=== PATIENT | female | born 1985 | race Caucasian/White ===

== ENCOUNTER 2016-09-23 22:27 | Emergency (ER) | payer OTHER ==
[2016-09-23 22:39] VITALS: BP 138/79; PULSE 91; RESP 20; TEMP 97.3
--- NOTE | 2016-09-23 23:12 | ED ---
General Adult HPI - General Chief complaint: Urogenital Stated complaint: Painful Urinating Time Seen by Provider: 09/23/16 22:47 Source: patient, family, RN notes reviewed Mode of arrival: ambulatory Limitations: no limitations - History of Present Illness Initial comments: 31-year-old female presents emergency Department with chief complaint of dysuria. She states his been off for last 2 days. Patient is concerned she may have UTI as she recently found out she is . Patient denies any vaginal bleeding or vaginal discharge. Denies any abdominal pain denies nausea , vomiting, diarrhea constipation. She states when she does increase her fluids she does feel better. Patient denies any other complaints at this time. - Related Data Previous Rx's Medication Instructions Recorded Nitrofurantoin Monohyd/M-Cryst 100 mg PO Q12HR #14 cap 09/23/16 [Macrobid] Allergies Allergy/AdvReac Type Severity Reaction Status Date / Time No Known Allergies Allergy Verified 09/23/16 23:12 Review of Systems ROS Statement: Those systems with pertinent positive or pertinent negative responses have been documented in the HPI. ROS Other: All systems not noted in ROS Statement are negative. Past Medical History Past Medical History: No Reported History History of Any Multi-Drug Resistant Organisms: None Reported, MRSA Date of last positivie culture/infection: 2010 MDRO Source:: left arm Past Surgical History: Section, Cholecystectomy Past Psychological History: No Psychological Hx Reported Smoking Status: Current every day smoker Past Alcohol Use History: None Reported Past Drug Use History: None Reported General Exam Limitations: no limitations General appearance: alert, in no apparent distress Respiratory exam: Present: normal lung sounds bilaterally. Absent: respiratory distress, wheezes, rales, rhonchi, stridor Cardiovascular Exam: Present: regular rate, normal rhythm, normal heart sounds. Absent: systolic murmur, diastolic murmur, rubs, gallop, clicks Back exam: Absent: CVA tenderness (R), CVA tenderness (L) Skin exam: Present: warm, dry, intact, normal color. Absent: rash Course Vital Signs 09/23/16 22:36 Temperature 97.3 F L Pulse Rate 91 Respiratory 20 Rate Blood Pressure 138/79 O2 Sat by Pulse 95 Oximetry Medical Decision Making - Medical Decision Making 31-year-old female presented for dysuria. Patient has UTI. Patient is and which she didn't know. Patient has no complaints of at this time. Patient will follow up with her OB. Patient placed on Macrobid. - Lab Data Lab Results 09/23/16 09/23/16 Range/Units 23:20 23:20 Urine Color Yellow Urine Appearance Cloudy H (Clear) Urine pH 5.5 (5.0-8.0) Ur Specific [place] 1.017 (1.001-1.035) Urine Protein Negative (Negative) Urine Glucose (UA) Negative (Negative) Urine Ketones Negative (Negative) Urine Blood Trace H (Negative) Urine Nitrite Negative (Negative) Urine Bilirubin Negative (Negative) Urine Urobilinogen <2.0 (<2.0) mg/dL Ur Leukocyte Esterase Large H (Negative) Urine RBC 8 H (0-5) /hpf Urine WBC >182 H (0-5) /hpf Ur Squamous Epith Cells 2 (0-4) /hpf Urine Bacteria Occasional H (None) /hpf Hyaline Casts 1 (0-2) /lpf Urine Mucus Rare H (None) /hpf Urine HCG, Qual Detected (Not Detectd) Disposition Clinical Impression: UTI (urinary tract infection), Disposition: HOME SELF-CARE Condition: Stable Instructions: Urinary Tract Infection in Women (ED) Additional Instructions: Please return to the Emergency Department if symptoms worsen or any other concerns. Prescriptions: Nitrofurantoin Monohyd/M-Cryst [Macrobid] 100 mg PO Q12HR #14 cap Referrals: Neel Chapman MD [Primary Care Provider] - 1-2 days Time of Disposition: 23:59
[2016-09-23 23:53] LABS: Appearance,Urine Cloudy (Clear); Bacteria,Urine Occasional /hpf; Bilirubin,Urine Negative (Negative); Glucose,Urine (UA) Negative (Negative); Ketones,Urine Negative (Negative); Leukocyte Esterase,Urine Large (Negative); Mucus,Urine Rare /hpf; Nitrite,Urine Negative (Negative); PH, Urine 5.5 (5.0-8.0); Particle Count 8442; Protein,Urine Negative (Negative); RBC,Urine 8 /hpf (0-5); Specific Gravity,Urine 1.017 (1.001-1.035); Squamous Epithelial Cell,Urine 2 /hpf (0-4); UA Billing (MACRO vs. MICRO) MICRO; Urobilinogen,Urine <2.0 mg/dL (<2.0); WBC,Urine >182 /hpf (0-5)
[2016-09-23] MEDS ORDERED: NITROFURANTOIN MONOHYD/M-CRYST 100 MG CAP PO STA (23:58)
== END 2016-09-24 00:18 | disposition home or self-care (01) ==
LOC: EC 22:27
DX: O23.40 Unspecified infection of urinary tract in pregnancy, unspecified trimester (principal); O99.330 Smoking (tobacco) complicating pregnancy, unspecified trimester; F17.200 Nicotine dependence, unspecified, uncomplicated; Z98.890 Other specified postprocedural states; Z3A.00 Weeks of gestation of pregnancy not specified
CPT/HCPCS: 81001; 81025; 87077; 87086; 87186; 99283

== ENCOUNTER → 2016-12-28 | Outpatient (CLI) | payer OTHER ==
--- NOTE | 2016-12-28 10:44 | US ---
EXAMINATION TYPE: US OB anatomy transabd DATE OF EXAM: 12/28/2016 COMPARISON: NONE HISTORY: O36.62X0 2nd Trimester Large for Dates LGA TECHNIQUE: Transabdominal (TA) EXAM MEASUREMENTS: GESTATIONAL AGE / DATING Physician Established: (20 weeks/4 days) EDC: 05/13/17 Dates by LMP: (20 weeks/4 days) EDC: 05/13/17 Dates by First Scan: no prior scan Dates by Current Scan for: ( weeks/ days) EDC: SURVEY IUP: Single PLACENTA: Anterior PREVIA: No previa ELLY: 13.6 cm Normal CERVICAL LENGTH (transabdominal: norm > 3.0cm): 3.6 cm BIOMETRY PRESENTATION: Breech LIE: Transverse lie with head maternal RT BPD: 4.3 cm 18 weeks / 6 days HC: 17.1 cm 19 weeks / 5 days AC: 14.6 cm 19 weeks / 6 days FL: 3.1 cm 19 weeks / 3 days ESTIMATED WEIGHT IN GRAMS: 305 grams ESTIMATED WEIGHT IN LBS/OZS: 0 lbs. 11 oz. WEIGHT PERCENTAGE BASED ON ESTABLISHED DATE: 8.7 % HC/AC: 1.17 Normal FL/AC: 20.95 Normal HEART RATE: 135 bpm RHYTHM: Normal ANATOMY SEEN (within normal limits): * Lateral Vent (< 1 cm) 0.5 cm * Cisterna Magna (< 1.1 cm) 0.3 cm * Nuchal Fold (< 0.6 cm) 0.3 cm * Cerebellum (varies with age) 1.7 cm Choroid Plexus (bilateral) Midline Falx Cavus Septi Pellucidi Four Chamber Heart Outflow tracts: LVOT/RVOT Stomach Situs Kidneys (bilateral) Bladder Cord Insert Three Vessel Cord Arms (bilateral) Legs (bilateral) ANATOMY NOT SEEN: due to position Longitudinal Spine Transverse Spine Nose / Lips Diaphragm IMPRESSION: Single viable IUP 19wks/3days with MIMI of 05/21/17. Patient scheduled for OB callback 01/12/17 at 11:0 0am
[2016-12-28 11:02] LABS: Anisocytosis Slight; CH 31.2; CHCM 36.2; HCT 35.8 % (34.0-46.0); HGB 12.3 gm/dL (11.4-16.0); MCH 29.9 pg (25.0-35.0); MCHC 34.4 g/dL (31.0-37.0); Mean Platelet Volume 7.8; Poikilocytosis Slight; RBC 4.11 m/uL (3.80-5.40); RDW 16.1 % (11.5-15.5); WBC 9.2 k/uL (3.8-10.6)
[2016-12-28 11:26] LABS: Glucose 77 mg/dL (74-99); Non-African American GFR(MDRD) >60 (>60 ml/min/1.73 sqM)
[2016-12-28 11:51] LABS: Hepatitis B Surface Ag Index 0.05
[2016-12-28 17:56] LABS: Treponemal Ab Non-Reactive (Non-Reactive)
[2016-12-29 03:03] LABS: Toxoplasma Antibody (IgG) <3.0 IU/mL (<7.2)
[2016-12-29 13:47] LABS: Alpha Fetoprotein (M.O.M) 1.14; B-HCG (M.O.M.) 1.79; Gestational Age (days) 4; Human Chorionic Gonadotropin 25.9 IU/mL; Inhibin A (M.O.M.) 1.08; Interpretation SeeBelow; Maternal Age at EDD (Yrs) 29; Smoker Yes; Unconjugated Estriol (M.O.M.) 0.56
== END ==
LOC: RADUSWWP 09:31
PROVIDERS: ATTEND Obstetrics & Gynecology
DX: O36.62X0 Maternal care for excessive fetal growth, second trimester, not applicable or unspecified (principal); Z3A.19 19 weeks gestation of pregnancy; Z34.82 Encounter for supervision of other normal pregnancy, second trimester
CPT/HCPCS: 76811; 82105; 82565; 82677; 82947; 84702; 85027; 86336; 86762; 86777; 86778; 86780; 86850; 86900; 86901; 87340

== ENCOUNTER → 2017-04-20 | Outpatient (CLI) | payer OTHER ==
[2017-04-20 12:57] LABS: Glucose 3 Hour, Gest 55 mg/dL
== END | disposition home or self-care (01) ==
LOC: LABWHC1 08:42
PROVIDERS: ATTEND Obstetrics & Gynecology
DX: O99.810 Abnormal glucose complicating pregnancy (principal)
CPT/HCPCS: 36415; 82951; 82952

== ENCOUNTER 2017-05-10 06:13 | Inpatient (IN) | payer OTHER ==
[2017-05-10] MEDS ORDERED: ceFAZolin IN SWFI 2 GM/20 ML SYRINGE IVP ONE (06:21)
[2017-05-10] MEDS ORDERED: CITRIC ACID-SODIUM CITRATE 15 ML CUP PO ONE (06:21)
[2017-05-10 06:33] LABS: Glucose,Whole Blood 83 mg/dL (75-99)
[2017-05-10 06:37] LABS: Basophils % (A) 0 %; Eosinophils # (A) 0.1 k/uL (0-0.7); Eosinophils % (A) 2 %; HCT 32.6 % (34.0-46.0); HGB 11.2 gm/dL (11.4-16.0); Lymphocytes # (A) 0.9 k/uL (1.0-4.8); Lymphocytes % (A) 13 %; MCH 29.4 pg (25.0-35.0); MCHC 34.4 g/dL (31.0-37.0); MCV 85.5 fL (80.0-100.0); Mean Platelet Volume 8.4; Monocytes # (A) 0.4 k/uL (0-1.0); Monocytes % (A) 5 %; Neutrophils # (A) 5.8 k/uL (1.3-7.7); Neutrophils % (A) 78 %; Platelet Count 210 k/uL (150-450); RBC 3.81 m/uL (3.80-5.40); RDW 15.2 % (11.5-15.5); WBC 7.4 k/uL (3.8-10.6)
[2017-05-10] MEDS ORDERED: LACTATED RINGERS 1,000 ML IV ONE (06:52)
[2017-05-10] MEDS ORDERED: LACTATED RINGERS 1,000 ML BAG IV ONE (07:56)
[2017-05-10] MEDS ORDERED: NALBUPHINE 10 MG/ML AMPUL ONE (07:56)
[2017-05-10] MEDS ORDERED: ONDANSETRON 4 MG/2 ML VIAL ONE (07:56)
[2017-05-10] MEDS ORDERED: OXYTOCIN 10 UNIT/ML 1 ML VIAL ONE (07:56)
[2017-05-10] MEDS ORDERED: MORPHINE SULFATE (PF) 0.3 MG/0.3 ML SYR ONE (07:56)
[2017-05-10] MEDS ORDERED: KETOROLAC 30 MG/ML 1 ML VIAL ONE (07:56)
[2017-05-10 08:14] VITALS: BMI 28.1
[2017-05-10] MEDS ORDERED: ONDANSETRON 4 MG/2 ML VIAL IVP PRN (08:36)
[2017-05-10] MEDS ORDERED: diphenhydrAMINE 50 MG/ML 1 ML VIAL IVP PRN ×2 (08:36)
[2017-05-10] MEDS ORDERED: NALOXONE 0.4 MG/ML 1 ML VIAL IV PRN ×2 (08:36→13:58)
[2017-05-10] MEDS ORDERED: ACETAMINOPHEN TAB 325 MG TAB PO PRN (08:36)
[2017-05-10] MEDS ORDERED: Acetaminophen-Codeine 300-30mg TAB PO PRN (08:36)
[2017-05-10] MEDS ORDERED: METOCLOPRAMIDE 5 MG/ML 2 ML VIAL IVP PRN (08:36)
[2017-05-10] MEDS ORDERED: ZOLPIDEM 5 MG TAB PO PRN (08:36)
[2017-05-10] MEDS ORDERED: diphenhydrAMINE 25 MG CAP PO PRN (08:36)
[2017-05-10] MEDS ORDERED: SIMETHICONE 80 MG CHEWABLE PO PRN (08:36)
[2017-05-10] MEDS ORDERED: diphenhydrAMINE 50 MG CAP PO PRN (08:36)
--- NOTE | 2017-05-10 08:39 | P.HPOB ---
History of Present Illness H&P Date: 05/10/17 Chief Complaint: Intrauterine at term: Previous section: Family planning Patient is a 31-year-old G3 5 P2 at 39 weeks gestation arise for repeat section with tubal ligation. Her course was noted to be started late at 18 weeks but had no other significant problems throughout the . Her pertinent labs could A+ blood type Rh Sonia was negative, rubella immune, hepatitis B surface antigen and RPR were both negative. On physical exam vital signs are stable and afebrile. Heart regular, lungs clear, extremities without pain. Osteopathic exams unremarkable. Abdomen soft gravid uterus is noted. heart tones were in the 140s and reactive. Assessment intrauterine at term. Plan repeat low transverse section with tubal ligation Past Medical History Past Medical History: GERD/Reflux Additional Past Medical History / Comment(s): gestational diabetes-no meds,Hx of falcemia,cystic fibrosis carrier, hx of atrial septal defect closing after 1rst History of Any Multi-Drug Resistant Organisms: MRSA Date of last positivie culture/infection: 2010 MDRO Source:: left arm Past Surgical History: Section, Cholecystectomy Past Anesthesia/Blood Transfusion Reactions: No Reported Reaction Additional Past Anesthesia/Blood Transfusion Reaction / Comment(s): no hx blood transfusion. Past Psychological History: No Psychological Hx Reported Smoking Status: Current every day smoker Past Alcohol Use History: None Reported Additional Past Alcohol Use History / Comment(s): smokes approx <1/2ppd,started smoking at age 22 Past Drug Use History: None Reported - Past Family History Mother Family Medical History: No Reported History Medications and Allergies Home Medications Medication Instructions Recorded Confirmed Type Xnb-[id number]-[id number] Acid 1 cap PO DAILY 05/08/17 05/08/17 History [-U Capsule (formulary)] Allergies Allergy/AdvReac Type Severity Reaction Status Date / Time No Known Allergies Allergy Verified 05/08/17 16:45 Exam Osteopathic Statement: *. No significant issues noted on an osteopathic structural exam other than those noted in the History and Physical/Consult. - Vital Signs Vital signs: Vital Signs Temp Pulse Resp BP 05/10/17 06:20 97.1 F L 80 14 119/69 Intake and Output 05/09/17 05/10/17 05/10/17 22:59 06:59 14:59 Other: Weight 72.121 kg Results Result Diagrams: 05/10/17 06:30 Abnormal Lab Results - Last 24 Hours (Table) 05/10/17 Range/Units 06:30 Hgb 11.2 L (11.4-16.0) gm/dL Hct 32.6 L (34.0-46.0) % Lymphocytes # 0.9 L (1.0-4.8) k/uL
--- NOTE | 2017-05-10 08:42 | P.OP ---
Date of Procedure: 05/10/17 Preoperative Diagnosis: Intrauterine at term: Previous sections: Family planning Postoperative Diagnosis: Same Procedure(s) Performed: Repeat low transverse section with bilateral partial salpingectomy Anesthesia: spinal Surgeon: Prateek Valdes Client Services Associate #1: Terry Cortez Estimated Blood Loss (ml): 600 IV fluids (ml): 1,000 Urine output (ml): 200 Pathology: other (Placenta) Condition: stable Disposition: floor Operative Findings: Female scores of 9 and 9 at one and 5 minutes respectively and weight of 6 lbs. 1 oz. Description of Procedure: Patient was taken to the operating suite where a spinal anesthetic was found be adequate. She was prepped and draped in the normal sterile fashion and placed in dorsal supine position with leftward tilt. Initially a Pfannenstiel skin incision was made and this incision was then carried through to underlying layer of the fascia was second knife. Fascia was then nicked in the midline and this opening was extended laterally with Rocha scissors. Superior and inferior aspect of this incision were then grasped tented up and bluntly and sharply dissected off the rectus muscles. Rectus muscles were then divided in the midline and sharp dissection through the peritoneum was made. This opening was then extended superiorly and inferiorly with good visualization of both bowel bladder. Bladder blade was then placed and the bladder flap was identified and entered with Metzenbaum scissors. This opening was then extended across the face of the uterus with Metzenbaum scissors and bladder flap was digitally created. Knife was then used to incise uterus and this opening was then extended bluntly. Head was then atraumatically delivered followed by the shoulders. Mouth nares were bulb suctioned and once baby was delivered the umbilical cord was clamped and cut in usual fashion with nursery personnel present to assume care. Placenta was then delivered intact and Pitocin was added to the IV. Uterus was then exteriorized cleared of clots debris and closed in 1 layer with 0 Vicryl suture. Once excellent hemostasis was obtained fallopian tubes were grasped with hemostats 2 cm from the uterine cornu with a hemostat and a window was created in the mesosalpinx. 2 proximal to distal 2-0 silk sutures were then placed with the intervening segment excised and tips cauterized. Blood and debris was then suctioned from the posterior cul-de-sac and the uterus was reinserted into the abdomen. Peritoneal layer was then closed with 0 Vicryl suture fascial layer was closed with 0 Vicryl suture one layer of 3-0 Vicryl was placed in deep subcuticular tissues to reapproximate the skin and close the space area the skin was then closed with 3-0 Vicryl on a Nnamdi needle. Sponge, lap, needle counts were all correct 2. Patient was then taken to the recovery room in stable and satisfactory condition.
[2017-05-10] MEDS ORDERED: LACTATED RINGERS 1,000 ML IV SCH (08:45)
[2017-05-10 12:14] LABS: Hemoglobin A1C 4.8 % (4.0-6.0)
[2017-05-10] MEDS ORDERED: MORPHINE SULFATE 2 MG/ML SYRINGE IVP PRN (13:58)
[2017-05-10] MEDS: KETOROLAC 30 MG/ML 1 ML VIAL IVP PRN (17:52)
[2017-05-10] MEDS: LACTATED RINGERS 1,000 ML IV SCH (19:00)
[2017-05-10] MEDS: SENNOSIDES-DOCUSATE SODIUM 1 EACH TAB PO SCH (20:08)
[2017-05-11] MEDS: KETOROLAC 30 MG/ML 1 ML VIAL IVP PRN (00:10)
[2017-05-11] MEDS: ceFAZolin 1,000 MG in DEXTROSE/WATER 1 50ML.BAG IVPB SCH ×2 (00:11→05:36)
[2017-05-11] MEDS: CALCIUM CARBONATE 500 MG CHEWABLE PO PRN (02:30)
[2017-05-11] MEDS: Acetaminophen-Codeine 300-30mg TAB PO PRN ×3 (04:00→18:21)
[2017-05-11] MEDS: LACTATED RINGERS 1,000 ML IV SCH (04:01)
--- NOTE | 2017-05-11 05:46 | P.PNOBGPC ---
Subjective - Subjective Patient reports: Reports appetite normal, Reports voiding normally, Reports pain well controlled, Reports ambulating normally : doing well Objective - Vital Signs Latest vital signs: Vital Signs Temp Pulse Resp BP Pulse Ox 05/11/17 04:00 98.0 F 69 16 90/47 96 05/11/17 02:00 20 05/11/17 00:00 100.5 F H 95 16 102/63 96 05/10/17 22:00 16 05/10/17 20:00 98.1 F 90 16 98/54 96 05/10/17 18:00 16 05/10/17 17:45 102.7 F H 16 05/10/17 16:58 16 05/10/17 16:00 100.5 F H 89 16 117/73 96 05/10/17 14:58 16 95 05/10/17 13:58 58 L 16 98 05/10/17 12:00 98.3 F 68 18 110/78 05/10/17 10:44 78 16 105/71 05/10/17 10:14 68 14 98/64 05/10/17 09:44 71 14 130/65 05/10/17 09:29 63 16 103/69 05/10/17 09:14 63 16 103/69 05/10/17 08:59 65 14 106/69 05/10/17 08:44 97.3 F L 85 16 120/76 05/10/17 06:20 97.1 F L 80 14 119/69 Intake and Output 05/10/17 05/10/17 05/11/17 14:59 22:59 06:59 Intake Total 500 200 Output Total 1275 550 Balance -775 -350 Intake: Oral 500 200 Output: Urine 1275 550 Uretheral (Hernandez) 775 Other: Voiding Method Indwelling Catheter - Exam Lungs: bilateral: dimished at base Chest: Normal S1, Normal S2 Extremities: Present: normal Abdomen: Present: normal appearance, soft. Absent: distention, tenderness Incision: Present: normal, dry, intact Uterus: Present: normal, firm - Labs Labs: Abnormal Lab Results - Last 24 Hours (Table) 05/10/17 Range/Units 06:30 Hgb 11.2 L (11.4-16.0) gm/dL Hct 32.6 L (34.0-46.0) % Lymphocytes # 0.9 L (1.0-4.8) k/uL Assessment and Plan Assessment: This is postoperative day #1. Patient's had a couple of elevated temperatures throughout the night and states that she has had a productive cough for approximately 2 or 3 days. Patient is a smoker as well. Exam shows decreased lung sounds at her bases otherwise appears normal. Uterus is firm nontender and her incision is intact and dry. Patient did receive several extra doses of Ancef. Plan at this time is to check a CBC, I'm going to check a chest x-ray to rule out pneumonia, change her over to an oral Zithromax. Patient is encouraged to ambulate and not smoke. Patient is tolerating regular diet we'll continue this. (1) delivery delivered Current Visit: Yes Status: Acute Code(s): O82 - ENCOUNTER FOR DELIVERY WITHOUT INDICATION SNOMED Code(s): 447310188
[2017-05-11 08:30] LABS: Basophils % (A) 0 %; Eosinophils # (A) 0.1 k/uL (0-0.7); Eosinophils % (A) 2 %; HGB 11.1 gm/dL (11.4-16.0); Lymphocytes # (A) 1.2 k/uL (1.0-4.8); Lymphocytes % (A) 19 %; MCH 29.2 pg (25.0-35.0); MCHC 33.7 g/dL (31.0-37.0); MCV 86.8 fL (80.0-100.0); Mean Platelet Volume 8.9; Monocytes # (A) 0.4 k/uL (0-1.0); Monocytes % (A) 7 %; Neutrophils # (A) 4.4 k/uL (1.3-7.7); Neutrophils % (A) 68 %; Platelet Count 172 k/uL (150-450); Poikilocytosis Slight; RBC 3.81 m/uL (3.80-5.40); RDW 14.6 % (11.5-15.5); WBC 6.4 k/uL (3.8-10.6)
--- NOTE | 2017-05-11 08:33 | P.PN ---
Progress Note - Text Anesthesia POD 1. Patient is status post section under spinal anesthesia with intra-thecal preservative free morphine 300 g. Minimal pruritus, good post-op analgesia, and no headache or other complication.
[2017-05-11] MEDS: IBUPROFEN 600 MG TAB PO PRN ×3 (09:18→21:41)
[2017-05-11] MEDS: AZITHROMYCIN 250 MG TAB PO SCH (09:18)
[2017-05-11] MEDS: SENNOSIDES-DOCUSATE SODIUM 1 EACH TAB PO SCH ×2 (09:18→20:45)
--- NOTE | 2017-05-11 11:11 | XR ---
EXAMINATION TYPE: XR chest 2V DATE OF EXAM: 05/11/2017 COMPARISON: Prior chest x-ray 12/16/2012 HISTORY: Cough and fever TECHNIQUE: Frontal and lateral views of the chest are obtained. FINDINGS: There is no focal air space opacity, pleural effusion, or pneumothorax seen. The cardiac silhouette size is within normal limits. The osseous structures are intact. Bronchial wall thickeni ng is noted. IMPRESSION: Correlate for bronchitis or reactive airways disease, follow-up as indicated.
[2017-05-12] MEDS: Acetaminophen-Codeine 300-30mg TAB PO PRN ×3 (00:41→12:55)
[2017-05-12] MEDS: IBUPROFEN 600 MG TAB PO PRN ×2 (05:21→11:26)
--- NOTE | 2017-05-12 07:07 | P.PNOBGPC ---
Subjective - Subjective Patient reports: Reports appetite normal, Reports voiding normally, Reports pain well controlled, Reports ambulating normally : doing well Objective - Vital Signs Latest vital signs: Vital Signs Temp Pulse Resp BP Pulse Ox 05/12/17 00:00 97.6 F 66 16 104/71 95 05/11/17 16:00 98.7 F 82 16 118/69 05/11/17 08:00 97.8 F 82 16 104/64 95 Intake and Output 05/11/17 05/12/17 05/12/17 22:59 06:59 14:59 Intake Total 500 Balance 500 Intake: Oral 500 Other: # Voids 1 - Exam Lungs: bilateral: normal Chest: Normal S1, Normal S2 Extremities: Present: normal Abdomen: Present: normal appearance, soft. Absent: distention, tenderness Incision: Present: normal, dry, intact Uterus: Present: normal, firm - Labs Labs: Abnormal Lab Results - Last 24 Hours (Table) 05/11/17 Range/Units 08:19 Hgb 11.1 L (11.4-16.0) gm/dL Hct 33.0 L (34.0-46.0) % Assessment and Plan Assessment: Postoperative day #2. Patient is resting without new complaints and wishes to go home. Chest x-ray yesterday showed no evidence of pneumonia but did have some findings consistent with bronchitis. I did start her on a Zithromax and she's been afebrile. Incision is intact and dry. Patient's felt to be stable for discharge home later today. Plan today is to continue postoperative care and oral antibiotics. (1) delivery delivered Current Visit: Yes Status: Acute Code(s): O82 - ENCOUNTER FOR DELIVERY WITHOUT INDICATION SNOMED Code(s): 278331719
--- NOTE | 2017-05-12 07:09 | P.DS ---
Providers Date of admission: 05/10/17 06:13 Expected date of discharge: 05/12/17 Attending physician: Prateek Valdes Primary care physician: Stated None - Discharge Diagnosis(es) (1) delivery delivered Current Visit: Yes Status: Acute Hospital Course: Please see dictated H&P per Dr. Benito on this patient's admission. In brief summary this patient is a 31-year-old 5 para 2 female admitted on May 10 for repeat section and tubal ligation. Patient undergoes above-named surgery. She did have a fever postoperatively and states that she had some respiratory concerns a few days prior to delivery. Chest x-ray was consistent with bronchitis and so is her exam. Patient was started on oral Zithromax and defervesced quickly. On postoperative and 2 patient's felt be stable for discharge home follow up with Dr. Benito in 1 week. Procedures: Repeat low transverse section and bilateral partial salpingectomy Patient Condition at Discharge: Good Plan - Discharge Summary Discharge Rx Participant: No New Discharge Prescriptions: New Acetaminophen-Codeine 300-30mg [Tylenol w/codeine #3] 1 - 2 each PO Q4HR PRN #30 tab PRN Reason: Mild Pain Azithromycin [Zithromax] 250 mg PO DAILY #5 tab Ibuprofen [Motrin] 600 mg PO Q6HR PRN #40 tab PRN Reason: Mild Pain Or Fever >= 100.5 No Action Wed-Dtkb-Liiht Acid [-U Capsule (formulary)] 1 cap PO DAILY Discharge Medication List Aft-Hrfr-Isigv Acid [-U Capsule (formulary)] 1 cap PO DAILY [History] Acetaminophen-Codeine 300-30mg [Tylenol w/codeine #3] 1 - 2 each PO Q4HR PRN # 30 tab 05/12/17 [Rx] Azithromycin [Zithromax] 250 mg PO DAILY #5 tab 05/12/17 [Rx] Ibuprofen [Motrin] 600 mg PO Q6HR PRN #40 tab 05/12/17 [Rx] Follow up Appointment(s)/Referral(s): Terry Cortez MD [STAFF PHYSICIAN] - 05/22/17 1:30 pm (Patient also has a visit with Dr. Benito on June 23 at 9:45 AM.) Patient Instructions/Handouts: (DC) Activity/Diet/Wound Care/Special Instructions: No heavy lifting or strenuous activity for 6 weeks. Please call if any fever, chills, excessive vaginal bleeding, and/or abdominal pain. Continue oral antibiotics for 5 days.
[2017-05-12 08:26] VITALS: BP 102/66; PULSE 76; RESP 18; TEMP 98
[2017-05-12] MEDS: SENNOSIDES-DOCUSATE SODIUM 1 EACH TAB PO SCH (09:11)
[2017-05-12] MEDS: AZITHROMYCIN 250 MG TAB PO SCH (09:11)
[2017-05-12] MEDS: CALCIUM CARBONATE 500 MG CHEWABLE PO PRN (12:26)
== END 2017-05-12 13:15 | disposition home or self-care (01) | DRG 766 ==
LOC: 4FBP 06:13
PROVIDERS: ADMIT Obstetrics & Gynecology; ATTEND Obstetrics & Gynecology
PROC: 0UB70ZZ Excision of Bilateral Fallopian Tubes, Open Approach (ICD-10-PCS; 2017-05-10)
PROC: 10D00Z1 Extraction of Products of Conception, Low, Open Approach (ICD-10-PCS; principal; 2017-05-10 08:00)
DX: O34.211 Maternal care for low transverse scar from previous cesarean delivery (principal); F17.210 Nicotine dependence, cigarettes, uncomplicated; O99.334 Smoking (tobacco) complicating childbirth; J40 Bronchitis, not specified as acute or chronic; K21.9 Gastro-esophageal reflux disease without esophagitis; O99.52 Diseases of the respiratory system complicating childbirth; O99.62 Diseases of the digestive system complicating childbirth; O75.89 Other specified complications of labor and delivery; L29.9 Pruritus, unspecified; Z37.0 Single live birth; Z14.1 Cystic fibrosis carrier; Z3A.39 39 weeks gestation of pregnancy; Z86.32 Personal history of gestational diabetes; Z86.14 Personal history of Methicillin resistant Staphylococcus aureus infection; Z90.49 Acquired absence of other specified parts of digestive tract
CPT/HCPCS: 71046; 83036; 85025; 86850; 86900; 86901; 87502; 88302; 88307

== ENCOUNTER 2019-07-19 23:40 | Emergency (ER) | payer OTHER ==
--- NOTE | 2019-07-20 00:10 | XR ---
EXAMINATION TYPE: XR chest 2V DATE OF EXAM: 07/20/2019 COMPARISON: 05/11/2017 HISTORY: Dysrhythmia TECHNIQUE: FINDINGS: Heart and mediastinum are normal. Lungs are clear. Diaphragm is normal. Bony thorax appears normal. IMPRESSION: Normal chest. No change.
[2019-07-20 00:11] LABS: Basophils % (A) 0 %; Eosinophils # (A) 0.3 k/uL (0-0.7); Eosinophils % (A) 3 %; HCT 33.3 % (34.0-46.0); HGB 10.8 gm/dL (11.4-16.0); Lymphocytes # (A) 1.9 k/uL (1.0-4.8); Lymphocytes % (A) 18 %; MCH 24.7 pg (25.0-35.0); MCHC 32.3 g/dL (31.0-37.0); MCV 76.6 fL (80.0-100.0); Mean Platelet Volume 8.1; Microcytosis Slight; Monocytes # (A) 0.6 k/uL (0-1.0); Monocytes % (A) 6 %; Neutrophils # (A) 7.3 k/uL (1.3-7.7); Neutrophils % (A) 71 %; Platelet Count 234 k/uL (150-450); RBC 4.35 m/uL (3.80-5.40); RDW 15.3 % (11.5-15.5); WBC 10.4 k/uL (3.8-10.6)
--- NOTE | 2019-07-20 00:19 | ED ---
Arrhythmia/Palpitations HPI - General Chief Complaint: Arrhythmia/Palpitations Stated Complaint: Palpitations Time Seen by Provider: 07/19/19 23:44 Source: EMS Mode of arrival: EMS Limitations: no limitations - History of Present Illness Initial Comments: 33yo female presenting for racing heart SOB when going to bed x few days. Patient states for the past 2-3 days when laying flat attempting to go to bed she feels like her heart is racing, she wakes up gasping. Denies chest pain, back pain, nausea, vomiting, jaw/arm pain, denies DVT/PE history, leg swelling, history of CAD or heart failure. Patient denies DM/HTN. Pt is everyday smoker. Patient denies , recent surgeries, recent travel, fevers, URI symptoms. Remaining ROS (-). Upon arrival patient appears well, nontoxic and is in no acute distress. - Related Data Home Medications Medication Instructions Recorded Confirmed Aoi-[id number]-Tsiwx Acid 1 cap PO DAILY 05/08/17 05/08/17 [-U Capsule (formulary)] Previous Rx's Medication Instructions Recorded Acetaminophen-Codeine 300-30mg 1 - 2 each PO Q4HR PRN #30 tab 05/12/17 [Tylenol w/codeine #3] Azithromycin [Zithromax] 250 mg PO DAILY #5 tab 05/12/17 Ibuprofen [Motrin] 600 mg PO Q6HR PRN #40 tab 05/12/17 Allergies Allergy/AdvReac Type Severity Reaction Status Date / Time No Known Allergies Allergy Verified 07/19/19 23:45 Review of Systems ROS Statement: Those systems with pertinent positive or pertinent negative responses have been documented in the HPI. ROS Other: All systems not noted in ROS Statement are negative. Past Medical History Past Medical History: GERD/Reflux Additional Past Medical History / Comment(s): gestational diabetes-no meds,Hx of falcemia,cystic fibrosis carrier, hx of atrial septal defect closing after 1rst History of Any Multi-Drug Resistant Organisms: MRSA Date of last positivie culture/infection: 2010 MDRO Source:: left arm Past Surgical History: Section, Cholecystectomy Past Anesthesia/Blood Transfusion Reactions: No Reported Reaction Additional Past Anesthesia/Blood Transfusion Reaction / Comment(s): no hx blood transfusion. Past Psychological History: No Psychological Hx Reported Smoking Status: Current every day smoker Past Alcohol Use History: None Reported Past Drug Use History: Marijuana - Past Family History Mother Family Medical History: No Reported History General Exam - General Exam Comments Initial Comments: General: The patient is awake and alert, in no distress, and does not appear acutely ill. Eye: +3 mm pupils are equal, round and reactive to light, extra-ocular movements are intact. No nystagmus. There is normal conjunctiva bilaterally. No signs of icterus. Ears, nose, mouth and throat: There are moist mucous membranes and no oral lesions. Neck: The neck is supple, there is no tenderness or JVD. Cardiovascular: There is a regular rate and rhythm. No murmur, rub or gallop is appreciated. Respiratory: Lungs are clear to auscultation, respirations are non-labored, breath sounds are equal. No wheezes, stridor, rales, or rhonchi. Gastrointestinal: [Soft, non-distended, non-tender abdomen without masses or organomegaly noted. There is no rebound or guarding present. No CVA tenderness. Bowel sounds are unremarkable.] Musculoskeletal: Normal ROM, no tenderness. Strength 5/5. Sensation intact. Radial pulses equal bilaterally 2+. Neurological: A&O x 3. CN II-XII intact, There are no obvious motor or sensory deficits. Coordination appears grossly intact. Speech is normal. Skin: Skin is warm and dry and no rashes or lesions are noted. No LE edema, c snf pain to palpation or swelling. Psychiatric: Cooperative, appropriate mood & affect, normal judgment. Limitations: no limitations Course Vital Signs 07/19/19 07/20/19 23:42 00:55 Temperature 97.8 F 98.5 F Pulse Rate 96 75 Respiratory 18 16 Rate Blood Pressure 124/85 112/77 O2 Sat by Pulse 100 99 Oximetry EKG Findings - EKG Comments: EKG Findings:: Ventricular rate 79 bpm, [place] interval 146 ms, QR synagogue 88 ms, QT/QTC 378/433 ms. This is normal sinus there is no ST elevation or depression. No significant T-wave changes this appears to be normal EKG Medical Decision Making - Medical Decision Making 33yo presenting for cc of palpatations. EKG no acute findings. Appears well. On monitor. Heart sounds WNL. rate palpated as normal. Legs without swelling and lungs clear. She appears well, discusses life stress and anxiety often during visit. CXR clear. Patient troponin and Dimer within acceptable limits. No Chest pain. Asymptomatic currently. At this time after discussing results with pateient she feels it is most likely anxiety however I did recommend close PCP f/u for holter monitor and return for return or worsening of symptoms, patient verbalized understanding and was discharged appearing well after discussing case with Dr. howard - Lab Data Result diagrams: 07/19/19 23:47 07/19/19 23:47 Lab Results 07/19/19 07/19/19 07/19/19 Range/Units 23:47 23:47 23:47 WBC 10.4 (3.8-10.6) k/uL RBC 4.35 (3.80-5.40) m/uL Hgb 10.8 L (11.4-16.0) gm/dL Hct 33.3 L (34.0-46.0) % MCV 76.6 L (80.0-100.0) fL MCH 24.7 L (25.0-35.0) pg MCHC 32.3 (31.0-37.0) g/dL RDW 15.3 (11.5-15.5) % Plt Count 234 (150-450) k/uL Neutrophils % 71 % Lymphocytes % 18 % Monocytes % 6 % Eosinophils % 3 % Basophils % 0 % Neutrophils # 7.3 (1.3-7.7) k/uL Lymphocytes # 1.9 (1.0-4.8) k/uL Monocytes # 0.6 (0-1.0) k/uL Eosinophils # 0.3 (0-0.7) k/uL Basophils # 0.0 (0-0.2) k/uL Microcytosis Slight PT 9.5 (9.0-12.0) sec INR 0.9 (<1.2) APTT 23.1 (22.0-30.0) sec D-Dimer 0.23 (<0.60) mg/L FEU Sodium 137 (137-145) mmol/L Potassium 3.5 (3.5-5.1) mmol/L Chloride 107 (98-107) mmol/L Carbon Dioxide 25 (22-30) mmol/L Anion Gap 5 mmol/L BUN 15 (7-17) mg/dL Creatinine 0.59 (0.52-1.04) mg/dL Est GFR (CKD-EPI)AfAm >90 (>60 ml/min/1.73 sqM) Est GFR (CKD-EPI)NonAf >90 (>60 ml/min/1.73 sqM) Glucose 138 H (74-99) mg/dL Calcium 8.8 (8.4-10.2) mg/dL Magnesium 2.0 (1.6-2.3) mg/dL Total Bilirubin 0.1 L (0.2-1.3) mg/dL AST 18 (14-36) U/L ALT 13 (4-34) U/L Alkaline Phosphatase 63 (38-126) U/L Troponin I (0.000-0.034) ng/mL Total Protein 6.9 (6.3-8.2) g/dL Albumin 3.8 (3.5-5.0) g/dL Urine HCG, Qual (Not Detectd) 07/19/19 07/20/19 Range/Units 23:47 00:31 WBC (3.8-10.6) k/uL RBC (3.80-5.40) m/uL Hgb (11.4-16.0) gm/dL Hct (34.0-46.0) % MCV (80.0-100.0) fL MCH (25.0-35.0) pg MCHC (31.0-37.0) g/dL RDW (11.5-15.5) % Plt Count (150-450) k/uL Neutrophils % % Lymphocytes % % Monocytes % % Eosinophils % % Basophils % % Neutrophils # (1.3-7.7) k/uL Lymphocytes # (1.0-4.8) k/uL Monocytes # (0-1.0) k/uL Eosinophils # (0-0.7) k/uL Basophils # (0-0.2) k/uL Microcytosis PT (9.0-12.0) sec INR (<1.2) APTT (22.0-30.0) sec D-Dimer (<0.60) mg/L FEU Sodium (137-145) mmol/L Potassium (3.5-5.1) mmol/L Chloride (98-107) mmol/L Carbon Dioxide (22-30) mmol/L Anion Gap mmol/L BUN (7-17) mg/dL Creatinine (0.52-1.04) mg/dL Est GFR (CKD-EPI)AfAm (>60 ml/min/1.73 sqM) Est GFR (CKD-EPI)NonAf (>60 ml/min/1.73 sqM) Glucose (74-99) mg/dL Calcium (8.4-10.2) mg/dL Magnesium (1.6-2.3) mg/dL Total Bilirubin (0.2-1.3) mg/dL AST (14-36) U/L ALT (4-34) U/L Alkaline Phosphatase (38-126) U/L Troponin I <0.012 (0.000-0.034) ng/mL Total Protein (6.3-8.2) g/dL Albumin (3.5-5.0) g/dL Urine HCG, Qual Not Detected (Not Detectd) Disposition Clinical Impression: Heart palpitations, Anxiety, Anemia Disposition: HOME SELF-CARE Condition: Good Instructions (If sedation given, give patient instructions): Heart Palpitations (ED) Additional Instructions: Please use medication as discussed. Please follow-up with family doctor in the next 2 days. Please return to emergency room if the symptoms increase or worsen or for any other concerns. Is patient prescribed a controlled substance at d/c from ED?: No Referrals: Connie Kuo MD [Primary Care Provider] - 1-2 days Time of Disposition: 01:00
[2019-07-20] MEDS ORDERED: LORazepam 2 MG/ML INJ IV STA (00:21)
[2019-07-20 00:27] LABS: D-Dimer 0.23 mg/L FEU (<0.60); INR 0.9 (<1.2); Partial Thromboplastin Time 23.1 sec (22.0-30.0); Prothrombin Time 9.5 sec (9.0-12.0)
[2019-07-20 00:30] LABS: ALT 13 U/L (4-34); AST 18 U/L (14-36); African American GFR (CKD) >90 (>60 ml/min/1.73 sqM); Albumin 3.8 g/dL (3.5-5.0); Alkaline Phosphatase 63 U/L (38-126); Anion Gap 5 mmol/L; Blood Urea Nitrogen 15 mg/dL (7-17); Calcium 8.8 mg/dL (8.4-10.2); Carbon Dioxide 25 mmol/L (22-30); Chloride 107 mmol/L (98-107); Glucose 138 mg/dL (74-99); Non-African American GFR(CKD) >90 (>60 ml/min/1.73 sqM); Potassium 3.5 mmol/L (3.5-5.1); Sodium 137 mmol/L (137-145); Total Bilirubin 0.1 mg/dL (0.2-1.3); Total Protein 6.9 g/dL (6.3-8.2)
[2019-07-20 00:56] VITALS: BP 112/77; PULSE 75; RESP 16; TEMP 98.5
== END 2019-07-20 01:15 | disposition home or self-care (01) ==
LOC: EC 23:40
DX: F41.9 Anxiety disorder, unspecified (principal); D64.9 Anemia, unspecified; R00.2 Palpitations; F17.200 Nicotine dependence, unspecified, uncomplicated; Z87.74 Personal history of (corrected) congenital malformations of heart and circulatory system
CPT/HCPCS: 36415; 93005; 85379; 80053; 83735; 84484; 85025; 85610; 85730; 81025; 71046; 99285; 96374; J2060

== ENCOUNTER → 2019-07-24 | Outpatient (CLI) | payer OTHER ==
[2019-07-24 08:55] LABS: Basophils % (A) 1 %; Eosinophils # (A) 0.2 k/uL (0-0.7); Eosinophils % (A) 2 %; HCT 39.8 % (34.0-46.0); HGB 12.7 gm/dL (11.4-16.0); Hypochromasia Slight; Lymphocytes # (A) 1.6 k/uL (1.0-4.8); Lymphocytes % (A) 22 %; MCH 24.7 pg (25.0-35.0); MCHC 31.8 g/dL (31.0-37.0); MCV 77.6 fL (80.0-100.0); Mean Platelet Volume 8.3; Monocytes # (A) 0.3 k/uL (0-1.0); Monocytes % (A) 5 %; Neutrophils % (A) 68 %; Platelet Count 298 k/uL (150-450); RBC 5.12 m/uL (3.80-5.40); RDW 15.1 % (11.5-15.5); WBC 7.3 k/uL (3.8-10.6)
[2019-07-24 15:26] LABS: % Iron Saturation 14.32 (12.00-45.00)
[2019-07-24 15:34] LABS: Thyroid Peroxidase Antibodies 44.2 U/mL (0.0-60.0)
[2019-07-24 15:36] LABS: T4, Free (Free Thyroxine) 1.1 ng/dL (0.80-1.80)
[2019-07-24 15:51] LABS: Ferritin 4.6 ng/mL (10.0-291.0); Folate, Serum 22.7 ng/mL
== END | disposition home or self-care (01) ==
LOC: LABWHC1 08:14
PROVIDERS: ATTEND Internal Medicine
DX: E06.9 Thyroiditis, unspecified (principal); R00.2 Palpitations; D64.9 Anemia, unspecified
CPT/HCPCS: 36415; 82607; 82728; 82746; 83540; 83550; 84439; 84443; 84481; 85025; 86376; 86800

== ENCOUNTER 2019-08-03 03:13 | Emergency (ER) | payer OTHER ==
[2019-08-03 03:20] VITALS: BP 119/93; RESP 17; TEMP 99.1
--- NOTE | 2019-08-03 03:26 | ED ---
Anxiety HPI - General Chief Complaint: Dizziness Stated Complaint: Anxiety Time Seen by Provider: 08/03/19 03:18 Source: patient, EMS, RN notes reviewed, old records reviewed Mode of arrival: EMS - History of Present Illness Initial Comments: This is a 33-year-old female presented to the ER today for evaluation of anxiety and palpitations. Patient admits to recent hospital visit in the ER visit for same as well as follow-up with primary care setting. No chest pain or shortness of breath. The symptoms awoke patient from sleep at this time patient is asymptomatic states her symptoms improved on EMS arriving at her house. She has no headache chest pain shortness with abdominal pain, no significant anxiety MD Complaint: anxiety, heart racing, shortness of breath -: hour(s) Symptoms: dyspnea, palpitations Place: home Previous History of Same: Yes Severity: mild Quality: intermittent, improving Provoking factors: emotional stress Improves With: nothing Worsens With: nothing Associated symptoms: palpitations - Related Data Home Medications: Home Medications Medication Instructions Recorded Confirmed Nwu-Igqy-Gmhgu Acid 1 cap PO DAILY 05/08/17 05/08/17 [-U Capsule (formulary)] Previous Rx's Medication Instructions Recorded Acetaminophen-Codeine 300-30mg 1 - 2 each PO Q4HR PRN #30 tab 05/12/17 [Tylenol w/codeine #3] Azithromycin [Zithromax] 250 mg PO DAILY #5 tab 05/12/17 Ibuprofen [Motrin] 600 mg PO Q6HR PRN #40 tab 05/12/17 Allergies/Adverse Reactions: Allergies Allergy/AdvReac Type Severity Reaction Status Date / Time No Known Allergies Allergy Verified 07/19/19 23:45 Review of Systems ROS Statement: Those systems with pertinent positive or pertinent negative responses have been documented in the HPI. ROS Other: All systems not noted in ROS Statement are negative. Past Medical History Past Medical History: GERD/Reflux Additional Past Medical History / Comment(s): gestational diabetes-no meds,Hx of falcemia,cystic fibrosis carrier, hx of atrial septal defect closing after 1rst History of Any Multi-Drug Resistant Organisms: MRSA Date of last positivie culture/infection: 2010 MDRO Source:: left arm Past Surgical History: Section, Cholecystectomy Past Anesthesia/Blood Transfusion Reactions: No Reported Reaction Additional Past Anesthesia/Blood Transfusion Reaction / Comment(s): no hx blood transfusion. Past Psychological History: Anxiety Smoking Status: Current every day smoker Past Alcohol Use History: None Reported Past Drug Use History: Marijuana - Past Family History Mother Family Medical History: No Reported History General Exam Limitations: no limitations General appearance: alert, in no apparent distress Head exam: Present: atraumatic, normocephalic, normal inspection Eye exam: Present: normal appearance, PERRL, EOMI. Absent: scleral icterus, conjunctival injection, periorbital swelling ENT exam: Present: normal exam, mucous membranes moist Neck exam: Present: normal inspection. Absent: tenderness, meningismus, lymphadenopathy Respiratory exam: Present: normal lung sounds bilaterally. Absent: respiratory distress, wheezes, rales, rhonchi, stridor Cardiovascular Exam: Present: regular rate, normal rhythm, normal heart sounds. Absent: systolic murmur, diastolic murmur, rubs, gallop, clicks GI/Abdominal exam: Present: soft, normal bowel sounds. Absent: distended, tenderness, guarding, rebound, rigid Extremities exam: Present: normal inspection, full ROM, normal capillary refill. Absent: tenderness, pedal edema, joint swelling, calf tenderness Back exam: Present: normal inspection Neurological exam: Present: alert, oriented X3, CN II-XII intact Psychiatric exam: Present: normal affect, normal mood Skin exam: Present: warm, dry, intact, normal color. Absent: rash Course Vital Signs 08/03/19 08/03/19 03:15 04:12 Temperature 99.1 F Pulse Rate 93 89 Respiratory 17 Rate Blood Pressure 119/93 O2 Sat by Pulse 99 Oximetry - Reevaluation(s) Reevaluation #1: Medical records reviewed Patient's asymptomatic throughout ER stay Medical Decision Making - Medical Decision Making 33 female DF for anxiety attack, prior lab values are reviewed. She is a symptomatic throughout ER stay vital signs normal on a monitor EKG negative patient can be discharged home - EKG Data -: EKG Interpreted by Me (EKG shows sinus rhythm rate of 81, [place] 150, QRS 86, QTC 432) Disposition Clinical Impression: Anxiety, Heart palpitations Disposition: HOME SELF-CARE Condition: Good Instructions (If sedation given, give patient instructions): Heart Palpitations (ED) Is patient prescribed a controlled substance at d/c from ED?: No Referrals: Connie Kuo MD [Primary Care Provider] - 1-2 days
[2019-08-03 04:16] VITALS: PULSE 89
== END 2019-08-03 04:13 | disposition home or self-care (01) ==
LOC: EC 03:13
DX: F41.9 Anxiety disorder, unspecified (principal); R00.2 Palpitations; F17.200 Nicotine dependence, unspecified, uncomplicated
CPT/HCPCS: 93005; 99285

== ENCOUNTER → 2019-08-12 | Outpatient (CLI) | payer OTHER ==
[2019-08-12 15:46] LABS: Albumin 4.3 g/dL (3.80-4.90); Albumin/Globulin Ratio 1.87 (1.60-3.17); Bilirubin, Conjugated 0.3 mg/dL (0.20-0.40); Bilirubin,Unconjugated 0.5 mg/dL; Chol/HDL Ratio 3.34; Globulin 2.3 g/dL (1.6-3.3); LDL Cholesterol,Calculated 70.4 mg/dL (0.0-131.0); Total Bilirubin 0.8 mg/dL (0.2-1.2); Total Protein 6.6 g/dL (6.2-8.2); VLDL Calculation 11.6 mg/dL (5.00-40.00)
== END | disposition home or self-care (01) ==
LOC: LABWHC1 09:25
PROVIDERS: ATTEND Internal Medicine
DX: R00.2 Palpitations (principal); R73.9 Hyperglycemia, unspecified
CPT/HCPCS: 36415; 80061; 80076; 82947; 83036

== ENCOUNTER → 2019-09-02 | Outpatient (CLI) | payer OTHER ==
--- NOTE | 2019-09-04 17:28 | US ---
EXAMINATION TYPE: US thyroid st tissue head/neck DATE OF EXAM: 09/02/2019 COMPARISON: NONE CLINICAL HISTORY: R22.1 RT SIDE OF NECK MASS. SWOLLEEN GLAND SIZE: Right Lobe: 4.6 X 1.7 X 1.4 cm Overall Parenchyma: homogenous Left Lobe: 4.2 X 1.3 X 1.4 cm Overall Parenchyma: homogeneous Isthmus Thickness: .6 cm NODULES RIGHT: # of nodules measured on right: Subcentimeter cystic area seen LEFT: # of nodules measured on left: 0 ISTHMUS: # of nodules measured in the isthmus: 0 Bilateral neck scanned, no evidence of lymphadenopathy. IMPRESSION: Tiny subcentimeter cystic lesion right thyroid lobe. Otherwise unremarkable study.
== END | disposition home or self-care (01) ==
LOC: RADUSWWP 10:59
PROVIDERS: ATTEND Internal Medicine
DX: E04.1 Nontoxic single thyroid nodule (principal)
CPT/HCPCS: 76536

== ENCOUNTER → 2019-09-16 | Outpatient (CLI) | payer OTHER ==
--- NOTE | 2019-09-16 13:15 | US ---
EXAMINATION TYPE: US pelvic complete DATE OF EXAM: 09/16/2019 COMPARISON: None CLINICAL HISTORY: 33-year-old female N93.8 other specified abnormal uterine and vaginal. Dysfunctiona l uterine bleeding, 5, para 3, miscarriage 1, 1 TECHNIQUE: Transabdominal sonographic images of the pelvis were acquired. Date of LMP: 09/16/2019 FINDINGS: EXAM MEASUREMENTS: Uterus: 8.5 cm Endometrial Stripe: 0.6 cm Right Ovary: 2.7 x 2.1 x 1.9 cm Left Ovary: 2.7 x 2.3 x 1.9 cm 1. Uterus: anteverted 2. Endometrium: appears wnl 3. Right Ovary: wnl 4. Left Ovary: wnl 5. Bilateral Adnexa: wnl 6. Posterior cul-de-sac: wnl, no free fluid. IMPRESSION: Unremarkable transabdominal sonographic examination of the abdomen.
== END | disposition home or self-care (01) ==
LOC: RADUSWWP 12:25
PROVIDERS: ATTEND Obstetrics & Gynecology
DX: N93.8 Other specified abnormal uterine and vaginal bleeding (principal)
CPT/HCPCS: 76856

== ENCOUNTER 2021-10-11 09:53 | Emergency (ER) | payer OTHER ==
[2021-10-11 10:00] VITALS: RESP 18; TEMP 98
[2021-10-11] MEDS ORDERED: SODIUM CHLORIDE 0.9% 1,000 ML IV STA (10:23)
[2021-10-11] MEDS ORDERED: FAMOTIDINE 20 MG/2 ML VIAL IV STA (10:24)
--- NOTE | 2021-10-11 10:55 | ED ---
Abdominal Pain HPI - General Chief Complaint: Abdominal Pain Stated Complaint: Lt Side pain Time Seen by Provider: 10/11/21 10:13 Source: patient, RN notes reviewed Mode of arrival: ambulatory Limitations: no limitations - History of Present Illness Initial Comments: This is a 36-year-old female who presents to the emergency Department with left upper quadrant and epigastric pain. Symptoms started 2 days ago. States that the pain increases when she inhales. She was around a coworker who was diagnosed with pneumonia, and she is concerned that she may have this as well, however she has not been coughing or having any shortness of breath. She also reports loose stools that started 2 days ago. Denies any nausea or vomiting. She was told that if she experienced symptoms like this, she should try drinking water, which she did, however it did not help. She then thought it may be related to her allergies, and she took [id number] antihistamines, however this again did not help her symptoms. Denies any fevers, chills, sore throat, cough, dyspnea, chest pain, palpitations, nausea, vomiting, back pain, or headaches. MD Complaint: abdominal pain Onset/Timin -: days(s) Location: LUQ, epigastric Associated Symptoms: diarrhea - Related Data Home Medications Medication Instructions Recorded Confirmed Methylphenidate HCl [Ritalin] 10 mg PO DAILY 10/11/21 10/11/21 Omeprazole 20 mg PO DAILY PRN 10/11/21 10/11/21 Previous Rx's Medication Instructions Recorded Omeprazole 20 mg PO QAM 14 Days #20 cap 10/11/21 Allergies Allergy/AdvReac Type Severity Reaction Status Date / Time lavender (Lavandula Allergy Unknown Verified 10/11/21 10:58 angustifolia) Review of Systems ROS Statement: Those systems with pertinent positive or pertinent negative responses have been documented in the HPI. ROS Other: All systems not noted in ROS Statement are negative. Past Medical History Past Medical History: GERD/Reflux Additional Past Medical History / Comment(s): gestational diabetes-no meds,Hx of falcemia,cystic fibrosis carrier, hx of atrial septal defect closing after 1rst History of Any Multi-Drug Resistant Organisms: MRSA Date of last positivie culture/infection: 2010 MDRO Source:: left arm Past Surgical History: Section, Cholecystectomy Past Anesthesia/Blood Transfusion Reactions: No Reported Reaction Additional Past Anesthesia/Blood Transfusion Reaction / Comment(s): no hx blood transfusion. Past Psychological History: Anxiety Smoking Status: Current every day smoker Past Alcohol Use History: None Reported Past Drug Use History: Marijuana - Past Family History Mother Family Medical History: No Reported History General Exam Limitations: no limitations General appearance: alert, in no apparent distress Head exam: Present: atraumatic, normocephalic, normal inspection Respiratory exam: Present: normal lung sounds bilaterally. Absent: respiratory distress, wheezes, rales, rhonchi, stridor Cardiovascular Exam: Present: regular rate, normal rhythm, normal heart sounds. Absent: systolic murmur, diastolic murmur, rubs, gallop, clicks GI/Abdominal exam: Present: soft, normal bowel sounds. Absent: distended, tenderness, guarding, rebound, rigid Neurological exam: Present: alert, oriented X3, CN II-XII intact Psychiatric exam: Present: normal affect, normal mood Skin exam: Present: warm, dry, intact, normal color. Absent: rash Course Vital Signs 10/11/21 10/11/21 09:59 13:14 Temperature 98 F Pulse Rate 102 H 90 Respiratory 18 18 Rate Blood Pressure 123/78 119/73 O2 Sat by Pulse 96 97 Oximetry Medical Decision Making - Medical Decision Making This is a 36-year-old female who presents to the emergency department for abdominal pain. Lab work and urinalysis were unremarkable and the patient was negative for COVID and influenza. Chest x-ray had no acute cardiopulmonary process. The patient does have a known history of acid reflux, and given the location, symptoms may be related to a gastritis or GERD flareup. She does take omeprazole intermittently for this, which she states works well. However, she has not taken the Omeprazole in several months. Advised she take this for 2 weeks and see if her symptoms improve. Refill was sent to the pharmacy as well. Instructed her to become established with a new primary care physician for reevaluation of symptoms and ongoing care. Return precautions reviewed in depth, the patient is instructed to return to the emergency department with any new, worsening, or concerning symptoms. Patient verbalized understanding. This case was discussed in detail with the attending ED physician. Presentation, findings, and treatment plan discussed in detail as well. - Lab Data Result diagrams: 10/11/21 10:54 10/11/21 10:54 Lab Results 10/11/21 10/11/21 10/11/21 Range/Units 10:54 10:54 10:54 WBC 8.9 (3.8-10.6) k/uL RBC 4.73 (3.80-5.40) m/uL Hgb 13.0 (11.4-16.0) gm/dL Hct 39.3 (34.0-46.0) % MCV 83.1 (80.0-100.0) fL MCH 27.5 (25.0-35.0) pg MCHC 33.1 (31.0-37.0) g/dL RDW 14.6 (11.5-15.5) % Plt Count 301 (150-450) k/uL MPV 7.8 Neutrophils % 68 % Lymphocytes % 23 % Monocytes % 5 % Eosinophils % 3 % Basophils % 0 % Neutrophils # 6.0 (1.3-7.7) k/uL Lymphocytes # 2.1 (1.0-4.8) k/uL Monocytes # 0.4 (0-1.0) k/uL Eosinophils # 0.2 (0-0.7) k/uL Basophils # 0.0 (0-0.2) k/uL D-Dimer (<0.60) mg/L FEU Sodium (137-145) mmol/L Potassium (3.5-5.1) mmol/L Chloride (98-107) mmol/L Carbon Dioxide (22-30) mmol/L Anion Gap mmol/L BUN (7-17) mg/dL Creatinine (0.52-1.04) mg/dL Est GFR (CKD-EPI)AfAm (>60 ml/min/1.73 sqM) Est GFR (CKD-EPI)NonAf (>60 ml/min/1.73 sqM) Glucose (74-99) mg/dL Calcium (8.4-10.2) mg/dL Total Bilirubin (0.2-1.3) mg/dL AST (14-36) U/L ALT (4-34) U/L Alkaline Phosphatase (38-126) U/L Troponin I (0.000-0.034) ng/mL Total Protein (6.3-8.2) g/dL Albumin (3.5-5.0) g/dL Amylase (30-110) U/L Lipase (23-300) U/L Urine Color Light Yellow Urine Appearance Cloudy H (Clear) Urine pH 7.0 (5.0-8.0) Ur Specific [place] 1.015 (1.001-1.035) Urine Protein Negative (Negative) Urine Glucose (UA) Negative (Negative) Urine Ketones Negative (Negative) Urine Blood Negative (Negative) Urine Nitrite Negative (Negative) Urine Bilirubin Negative (Negative) Urine Urobilinogen <2.0 (<2.0) mg/dL Ur Leukocyte Esterase Negative (Negative) Urine RBC 1 (0-5) /hpf Urine WBC 2 (0-5) /hpf Ur Squamous Epith Cells 13 H (0-4) /hpf Urine Bacteria Rare H (None) /hpf Urine Mucus Rare H (None) /hpf Urine HCG, Qual Not Detected (Not Detectd) Coronavirus (PCR) (Not Detectd) Influenza Type A RNA (Not Detectd) Influenza Type B (PCR) (Not Detectd) 10/11/21 10/11/21 10/11/21 Range/Units 10:54 10:54 10:54 WBC (3.8-10.6) k/uL RBC (3.80-5.40) m/uL Hgb (11.4-16.0) gm/dL Hct (34.0-46.0) % MCV (80.0-100.0) fL MCH (25.0-35.0) pg MCHC (31.0-37.0) g/dL RDW (11.5-15.5) % Plt Count (150-450) k/uL MPV Neutrophils % % Lymphocytes % % Monocytes % % Eosinophils % % Basophils % % Neutrophils # (1.3-7.7) k/uL Lymphocytes # (1.0-4.8) k/uL Monocytes # (0-1.0) k/uL Eosinophils # (0-0.7) k/uL Basophils # (0-0.2) k/uL D-Dimer (<0.60) mg/L FEU Sodium 137 (137-145) mmol/L Potassium 4.6 (3.5-5.1) mmol/L Chloride 107 (98-107) mmol/L Carbon Dioxide 22 (22-30) mmol/L Anion Gap 8 mmol/L BUN 13 (7-17) mg/dL Creatinine 0.61 (0.52-1.04) mg/dL Est GFR (CKD-EPI)AfAm >90 (>60 ml/min/1.73 sqM) Est GFR (CKD-EPI)NonAf >90 (>60 ml/min/1.73 sqM) Glucose 88 (74-99) mg/dL Calcium 9.3 (8.4-10.2) mg/dL Total Bilirubin 0.4 (0.2-1.3) mg/dL AST 23 (14-36) U/L ALT 20 (4-34) U/L Alkaline Phosphatase 64 (38-126) U/L Troponin I <0.012 (0.000-0.034) ng/mL Total Protein 7.0 (6.3-8.2) g/dL Albumin 4.1 (3.5-5.0) g/dL Amylase 51 (30-110) U/L Lipase 134 (23-300) U/L Urine Color Urine Appearance (Clear) Urine pH (5.0-8.0) Ur Specific [place] (1.001-1.035) Urine Protein (Negative) Urine Glucose (UA) (Negative) Urine Ketones (Negative) Urine Blood (Negative) Urine Nitrite (Negative) Urine Bilirubin (Negative) Urine Urobilinogen (<2.0) mg/dL Ur Leukocyte Esterase (Negative) Urine RBC (0-5) /hpf Urine WBC (0-5) /hpf Ur Squamous Epith Cells (0-4) /hpf Urine Bacteria (None) /hpf Urine Mucus (None) /hpf Urine HCG, Qual (Not Detectd) Coronavirus (PCR) (Not Detectd) Influenza Type A RNA Not Detected (Not Detectd) Influenza Type B (PCR) Not Detected (Not Detectd) 10/11/21 10/11/21 Range/Units 10:54 10:54 WBC (3.8-10.6) k/uL RBC (3.80-5.40) m/uL Hgb (11.4-16.0) gm/dL Hct (34.0-46.0) % MCV (80.0-100.0) fL MCH (25.0-35.0) pg MCHC (31.0-37.0) g/dL RDW (11.5-15.5) % Plt Count (150-450) k/uL MPV Neutrophils % % Lymphocytes % % Monocytes % % Eosinophils % % Basophils % % Neutrophils # (1.3-7.7) k/uL Lymphocytes # (1.0-4.8) k/uL Monocytes # (0-1.0) k/uL Eosinophils # (0-0.7) k/uL Basophils # (0-0.2) k/uL D-Dimer 0.55 (<0.60) mg/L FEU Sodium (137-145) mmol/L Potassium (3.5-5.1) mmol/L Chloride (98-107) mmol/L Carbon Dioxide (22-30) mmol/L Anion Gap mmol/L BUN (7-17) mg/dL Creatinine (0.52-1.04) mg/dL Est GFR (CKD-EPI)AfAm (>60 ml/min/1.73 sqM) Est GFR (CKD-EPI)NonAf (>60 ml/min/1.73 sqM) Glucose (74-99) mg/dL Calcium (8.4-10.2) mg/dL Total Bilirubin (0.2-1.3) mg/dL AST (14-36) U/L ALT (4-34) U/L Alkaline Phosphatase (38-126) U/L Troponin I (0.000-0.034) ng/mL Total Protein (6.3-8.2) g/dL Albumin (3.5-5.0) g/dL Amylase (30-110) U/L Lipase (23-300) U/L Urine Color Urine Appearance (Clear) Urine pH (5.0-8.0) Ur Specific [place] (1.001-1.035) Urine Protein (Negative) Urine Glucose (UA) (Negative) Urine Ketones (Negative) Urine Blood (Negative) Urine Nitrite (Negative) Urine Bilirubin (Negative) Urine Urobilinogen (<2.0) mg/dL Ur Leukocyte Esterase (Negative) Urine RBC (0-5) /hpf Urine WBC (0-5) /hpf Ur Squamous Epith Cells (0-4) /hpf Urine Bacteria (None) /hpf Urine Mucus (None) /hpf Urine HCG, Qual (Not Detectd) Coronavirus (PCR) Not Detected (Not Detectd) Influenza Type A RNA (Not Detectd) Influenza Type B (PCR) (Not Detectd) - Radiology Data Radiology results: report reviewed, image reviewed Disposition Clinical Impression: Gastritis Disposition: HOME SELF-CARE Instructions (If sedation given, give patient instructions): Gastritis (ED) Additional Instructions: Return to the emergency department with any new, worsening, or concerning symptoms. Take the omeprazole daily for 2 weeks. Become established with a new primary care provider for follow-up and further evaluation of symptoms. Prescriptions: Omeprazole 20 mg PO QAM 14 Days #20 cap Is patient prescribed a controlled substance at d/c from ED?: No Referrals: None,Stated [Primary Care Provider] - 1-2 days
[2021-10-11 11:17] LABS: Basophils % (A) 0 %; Eosinophils # (A) 0.2 k/uL (0-0.7); Eosinophils % (A) 3 %; HCT 39.3 % (34.0-46.0); Lymphocytes # (A) 2.1 k/uL (1.0-4.8); Lymphocytes % (A) 23 %; MCH 27.5 pg (25.0-35.0); MCHC 33.1 g/dL (31.0-37.0); MCV 83.1 fL (80.0-100.0); Mean Platelet Volume 7.8; Monocytes # (A) 0.4 k/uL (0-1.0); Monocytes % (A) 5 %; Neutrophils % (A) 68 %; Platelet Count 301 k/uL (150-450); RBC 4.73 m/uL (3.80-5.40); RDW 14.6 % (11.5-15.5); WBC 8.9 k/uL (3.8-10.6)
[2021-10-11 11:22] LABS: Appearance,Urine Cloudy (Clear); Bacteria,Urine Rare /hpf; Bilirubin,Urine Negative (Negative); Blood,Urine Negative (Negative); Color,Urine Light Yellow; Glucose,Urine (UA) Negative (Negative); Ketones,Urine Negative (Negative); Leukocyte Esterase,Urine Negative (Negative); Mucus,Urine Rare /hpf; Nitrite,Urine Negative (Negative); Protein,Urine Negative (Negative); RBC,Urine 1 /hpf (0-5); Specific Gravity,Urine 1.015 (1.001-1.035); Squamous Epithelial Cell,Urine 13 /hpf (0-4); Urobilinogen,Urine <2.0 mg/dL (<2.0); WBC,Urine 2 /hpf (0-5)
[2021-10-11 11:31] LABS: ALT 20 U/L (4-34); AST 23 U/L (14-36); African American GFR (CKD) >90 (>60 ml/min/1.73 sqM); Albumin 4.1 g/dL (3.5-5.0); Alkaline Phosphatase 64 U/L (38-126); Amylase 51 U/L (30-110); Anion Gap 8 mmol/L; Blood Urea Nitrogen 13 mg/dL (7-17); Calcium 9.3 mg/dL (8.4-10.2); Carbon Dioxide 22 mmol/L (22-30); Chloride 107 mmol/L (98-107); Glucose 88 mg/dL (74-99); Lipase 134 U/L (23-300); Non-African American GFR(CKD) >90 (>60 ml/min/1.73 sqM); Potassium 4.6 mmol/L (3.5-5.1); Sodium 137 mmol/L (137-145); Total Bilirubin 0.4 mg/dL (0.2-1.3)
--- NOTE | 2021-10-11 11:49 | XR ---
EXAMINATION TYPE: XR chest 2V DATE OF EXAM: 10/11/2021 COMPARISON: 07/20/2019 TECHNIQUE: PA and lateral views submitted. HISTORY: Pain FINDINGS: The lungs are clear and there is no pneumothorax, pleural effusion, or focal pneumonia. Heart size normal. No overt failure. IMPRESSION: 1. No acute process.
[2021-10-11 13:16] VITALS: BP 119/73; PULSE 90
== END 2021-10-11 13:16 | disposition home or self-care (01) ==
LOC: EC 09:53
DX: K29.70 Gastritis, unspecified, without bleeding (principal); K21.9 Gastro-esophageal reflux disease without esophagitis; F41.9 Anxiety disorder, unspecified; F17.200 Nicotine dependence, unspecified, uncomplicated; F12.90 Cannabis use, unspecified, uncomplicated; Z91.09 Other allergy status, other than to drugs and biological substances; Z20.822 Contact with and (suspected) exposure to COVID-19
CPT/HCPCS: 36415; 71046; 80053; 81001; 81025; 82150; 83690; 84484; 85025; 85379; 87502; 87635; 96361; 96374; 99284

== ENCOUNTER 2022-02-26 22:34 | Emergency (ER) | payer OTHER ==
[2022-02-26 23:31] LABS: Basophils % (A) 0 %; Eosinophils # (A) 0.2 k/uL (0-0.7); Eosinophils % (A) 2 %; HCT 37.4 % (34.0-46.0); HGB 12.7 gm/dL (11.4-16.0); Lymphocytes # (A) 3.3 k/uL (1.0-4.8); Lymphocytes % (A) 33 %; MCHC 33.9 g/dL (31.0-37.0); MCV 79.5 fL (80.0-100.0); Monocytes # (A) 0.5 k/uL (0-1.0); Monocytes % (A) 5 %; Neutrophils # (A) 5.6 k/uL (1.3-7.7); Neutrophils % (A) 57 %; Platelet Count 315 k/uL (150-450); WBC 9.8 k/uL (3.8-10.6)
[2022-02-26 23:40] LABS: ALT 15 U/L (4-34); AST 17 U/L (14-36); African American GFR (CKD) >90 (>60 ml/min/1.73 sqM); Albumin 4.2 g/dL (3.5-5.0); Alkaline Phosphatase 83 U/L (38-126); Amylase <30 U/L (30-110); Anion Gap 6 mmol/L; Blood Urea Nitrogen 17 mg/dL (7-17); Calcium 9.3 mg/dL (8.4-10.2); Carbon Dioxide 26 mmol/L (22-30); Chloride 106 mmol/L (98-107); Glucose 97 mg/dL (74-99); Lipase 164 U/L (23-300); Non-African American GFR(CKD) >90 (>60 ml/min/1.73 sqM); Potassium 4.1 mmol/L (3.5-5.1); Sodium 138 mmol/L (137-145); Total Bilirubin 0.4 mg/dL (0.2-1.3); Total Protein 6.9 g/dL (6.3-8.2)
[2022-02-26 23:45] LABS: Appearance,Urine Clear (Clear); Bilirubin,Urine Negative (Negative); Blood,Urine Negative (Negative); Color,Urine Yellow; Glucose,Urine (UA) Negative (Negative); Ketones,Urine Negative (Negative); Leukocyte Esterase,Urine Negative (Negative); Nitrite,Urine Negative (Negative); Protein,Urine Trace (Negative); Specific Gravity,Urine 1.028 (1.001-1.035)
[2022-02-27] MEDS ORDERED: KETOROLAC 15 MG/ML 1 ML VIAL IVP STA (01:08)
--- NOTE | 2022-02-27 02:30 | CT ---
EXAMINATION TYPE: CT abdomen pelvis w con DATE OF EXAM: 02/27/2022 COMPARISON: 03/07/2016 HISTORY: rlq pain CT DLP: 1260.2 mGycm Automated exposure control for dose reduction was used. CONTRAST: Performed with IV Contrast, patient injected with 100 mL of Isovue 300. Images obtained from the diaphragm to the floor of the pelvis with IV contrast Lung bases are clear. No pleural effusion. Heart size is normal. No pericardial effusion. Liver spleen and stomach appear intact. Bile ducts are nondilated. There is no pancreatic mass. There are clips from cholecystectomy. There is no adrenal mass. Kidneys show satisfactory contrast opacification. There is no hydronephrosi s. Ureters are not dilated. Bladder distends smoothly. No inguinal hernia. No free fluid in the pelvi s. There is a 3 cm cyst on the right ovary. Appendix is posterior and lateral and appears normal.. The lumbar vertebrae appear intact. No compression fracture or bony pelvis is intact. The hip joints are intact. IMPRESSION: No acute abnormality of the abdomen and pelvis. No adverse change compared to old exam. Normal append ix.. Dominant right ovarian cyst. Cyst appears new compared to old exam.
--- NOTE | 2022-02-27 02:50 | ED ---
General Adult HPI - General Chief complaint: Abdominal Pain Stated complaint: Abdominal pain Time Seen by Provider: 02/27/22 00:50 Source: patient, RN notes reviewed Mode of arrival: ambulatory Limitations: no limitations - History of Present Illness Initial comments: 36-year-old female presents to the emergency Department with complaints of right lower quadrant abdominal pain, onset this evening. Patient states pain began after rising from the couch and worsens with movement. Reports some radiation of pain to the right flank and back. Symptoms were slightly alleviated with rest. States she looked up her symptoms on [employer] and became concerned about appendicitis, ectopic , and kidney stone. Did not take anything to treat her pain prior to arrival. Denies fever, chills, headache, dizziness, chest pain, shortness of breath, diarrhea, constipation, dysuria, or hematuria. - Related Data Home Medications Medication Instructions Recorded Confirmed Methylphenidate HCl [Ritalin] 10 mg PO DAILY 10/11/21 10/11/21 Omeprazole 20 mg PO DAILY PRN 10/11/21 10/11/21 Previous Rx's Medication Instructions Recorded Omeprazole 20 mg PO QAM 14 Days #20 cap 10/11/21 Allergies Allergy/AdvReac Type Severity Reaction Status Date / Time lavender (Lavandula Allergy Unknown Verified 02/26/22 22:35 angustifolia) Review of Systems ROS Statement: Those systems with pertinent positive or pertinent negative responses have been documented in the HPI. ROS Other: All systems not noted in ROS Statement are negative. Past Medical History Past Medical History: GERD/Reflux Additional Past Medical History / Comment(s): gestational diabetes-no meds,Hx of falcemia,cystic fibrosis carrier, hx of atrial septal defect closing after 1rst History of Any Multi-Drug Resistant Organisms: MRSA Date of last positivie culture/infection: 2010 MDRO Source:: left arm Past Surgical History: Section, Cholecystectomy Past Anesthesia/Blood Transfusion Reactions: No Reported Reaction Additional Past Anesthesia/Blood Transfusion Reaction / Comment(s): no hx blood transfusion. Past Psychological History: Anxiety Smoking Status: Current every day smoker Past Alcohol Use History: None Reported Past Drug Use History: Marijuana - Past Family History Mother Family Medical History: No Reported History General Exam Limitations: no limitations (Well-developed, well-nourished female in no acute distress. Initial temperature 97.3, pulse 83, respirations 18, blood pressure 132/97, pulse ox 100% on room air.) General appearance: alert, in no apparent distress ENT exam: Present: mucous membranes moist Neck exam: Present: normal inspection. Absent: lymphadenopathy Respiratory exam: Present: normal lung sounds bilaterally. Absent: respiratory distress, wheezes, rales, rhonchi, stridor Cardiovascular Exam: Present: regular rate, normal rhythm, normal heart sounds. Absent: systolic murmur, diastolic murmur, rubs, gallop, clicks GI/Abdominal exam: Present: soft, tenderness (mild mid-low right sided abdominal pain upon palpation; no rebound tenderness.), normal bowel sounds. Absent: distended, guarding, rebound, rigid Neurological exam: Present: alert, oriented X3, CN II-XII intact Psychiatric exam: Present: normal affect, normal mood Skin exam: Present: warm, dry, intact, normal color. Absent: rash Course Vital Signs 02/26/22 02/27/22 02/27/22 22:35 00:43 02:26 Temperature 97.3 F L 97.6 F Pulse Rate 83 76 82 Respiratory 18 14 13 Rate Blood Pressure 132/97 120/79 103/70 O2 Sat by Pulse 100 99 98 Oximetry 02/27/22 02:56 Temperature 97.9 F Pulse Rate 68 Respiratory 16 Rate Blood Pressure 110/72 O2 Sat by Pulse 100 Oximetry - Reevaluation(s) Reevaluation #1: 02/27/22 02:30 Patient is updated of results and is reassured by these findings. Reports pain level is improved and expresses readiness for discharge. Medical Decision Making - Medical Decision Making Pleasant 36-year-old female with a past medical history of tubal ligation who presents to the emergency Department with complaints of right lower quadrant abdominal pain, onset this evening. Upon exam, patient is well-appearing and in no acute distress. Abdomen is soft with mild tenderness of the right lower quadrant. Pain is exacerbated by movement. Given location of pain, there is concern for appendicitis. Patient is concerned about ectopic despite tubal ligation. We also discussed the possibility of kidney stone or muscle strain. Laboratory studies were obtained and are unremarkable. CT of the abdomen and pelvis shows a normal appendix and presence of a right ovarian cyst. Vital signs stable. Patient afebrile. She is reassured by these findings and will be discharged home with ovarian cyst education/instructions. Encouraged follow-up with her PCP for a recheck. Instructed to take Tylenol or Motrin as needed for pain. Return parameters were discussed in detail. Patient verbalizes understanding and agrees with plan. Attending: Emily - Lab Data Result diagrams: 02/26/22 23:16 02/26/22 23:16 Lab Results 02/26/22 02/26/22 02/26/22 Range/Units 23:16 23:16 23:16 WBC 9.8 (3.8-10.6) k/uL RBC 4.70 (3.80-5.40) m/uL Hgb 12.7 (11.4-16.0) gm/dL Hct 37.4 (34.0-46.0) % MCV 79.5 L (80.0-100.0) fL MCH 27.0 (25.0-35.0) pg MCHC 33.9 (31.0-37.0) g/dL RDW 14.0 (11.5-15.5) % Plt Count 315 (150-450) k/uL MPV 8.0 Neutrophils % 57 % Lymphocytes % 33 % Monocytes % 5 % Eosinophils % 2 % Basophils % 0 % Neutrophils # 5.6 (1.3-7.7) k/uL Lymphocytes # 3.3 (1.0-4.8) k/uL Monocytes # 0.5 (0-1.0) k/uL Eosinophils # 0.2 (0-0.7) k/uL Basophils # 0.0 (0-0.2) k/uL Sodium 138 (137-145) mmol/L Potassium 4.1 (3.5-5.1) mmol/L Chloride 106 (98-107) mmol/L Carbon Dioxide 26 (22-30) mmol/L Anion Gap 6 mmol/L BUN 17 (7-17) mg/dL Creatinine 0.64 (0.52-1.04) mg/dL Est GFR (CKD-EPI)AfAm >90 (>60 ml/min/1.73 sqM) Est GFR (CKD-EPI)NonAf >90 (>60 ml/min/1.73 sqM) Glucose 97 (74-99) mg/dL Calcium 9.3 (8.4-10.2) mg/dL Total Bilirubin 0.4 (0.2-1.3) mg/dL AST 17 (14-36) U/L ALT 15 (4-34) U/L Alkaline Phosphatase 83 (38-126) U/L Total Protein 6.9 (6.3-8.2) g/dL Albumin 4.2 (3.5-5.0) g/dL Amylase <30 L (30-110) U/L Lipase 164 (23-300) U/L Urine Color Yellow Urine Appearance Clear (Clear) Urine pH 6.0 (5.0-8.0) Ur Specific [place] 1.028 (1.001-1.035) Urine Protein Trace H (Negative) Urine Glucose (UA) Negative (Negative) Urine Ketones Negative (Negative) Urine Blood Negative (Negative) Urine Nitrite Negative (Negative) Urine Bilirubin Negative (Negative) Urine Urobilinogen 2.0 (<2.0) mg/dL Ur Leukocyte Esterase Negative (Negative) Urine HCG, Qual (Not Detectd) 02/26/22 Range/Units 23:16 WBC (3.8-10.6) k/uL RBC (3.80-5.40) m/uL Hgb (11.4-16.0) gm/dL Hct (34.0-46.0) % MCV (80.0-100.0) fL MCH (25.0-35.0) pg MCHC (31.0-37.0) g/dL RDW (11.5-15.5) % Plt Count (150-450) k/uL MPV Neutrophils % % Lymphocytes % % Monocytes % % Eosinophils % % Basophils % % Neutrophils # (1.3-7.7) k/uL Lymphocytes # (1.0-4.8) k/uL Monocytes # (0-1.0) k/uL Eosinophils # (0-0.7) k/uL Basophils # (0-0.2) k/uL Sodium (137-145) mmol/L Potassium (3.5-5.1) mmol/L Chloride (98-107) mmol/L Carbon Dioxide (22-30) mmol/L Anion Gap mmol/L BUN (7-17) mg/dL Creatinine (0.52-1.04) mg/dL Est GFR (CKD-EPI)AfAm (>60 ml/min/1.73 sqM) Est GFR (CKD-EPI)NonAf (>60 ml/min/1.73 sqM) Glucose (74-99) mg/dL Calcium (8.4-10.2) mg/dL Total Bilirubin (0.2-1.3) mg/dL AST (14-36) U/L ALT (4-34) U/L Alkaline Phosphatase (38-126) U/L Total Protein (6.3-8.2) g/dL Albumin (3.5-5.0) g/dL Amylase (30-110) U/L Lipase (23-300) U/L Urine Color Urine Appearance (Clear) Urine pH (5.0-8.0) Ur Specific [place] (1.001-1.035) Urine Protein (Negative) Urine Glucose (UA) (Negative) Urine Ketones (Negative) Urine Blood (Negative) Urine Nitrite (Negative) Urine Bilirubin (Negative) Urine Urobilinogen (<2.0) mg/dL Ur Leukocyte Esterase (Negative) Urine HCG, Qual Not Detected (Not Detectd) - Radiology Data Radiology results: report reviewed, image reviewed Interpreted by me: Upon my preliminary review the CT, I see no fat stranding or evidence of appendix. CT of the abdomen and pelvis with contrast is obtained. Report was reviewed in its entirety. Impression per Dr. Lopez is no acute abnormality of the abdomen and pelvis. No adverse change compared to old exam. Normal appendix. Dominant right ovarian cyst. Cyst appears new compared to old exam. Disposition Clinical Impression: Abdominal pain, Ovarian cyst Disposition: HOME SELF-CARE Condition: Stable Instructions (If sedation given, give patient instructions): Ovarian Cyst (ED) Additional Instructions: May take Tylenol or Motrin if needed for pain. Follow up with your PCP as needed for a recheck. Return to the emergency department with any new, worsening, or concerning symptoms. Is patient prescribed a controlled substance at d/c from ED?: No Referrals: Connie Kuo MD [Primary Care Provider] - 1-2 days Time of Disposition: 02:50
[2022-02-27 02:58] VITALS: BP 110/72; PULSE 68; RESP 16; TEMP 97.9
== END 2022-02-27 02:59 | disposition home or self-care (01) ==
LOC: EC 22:34
DX: N83.201 Unspecified ovarian cyst, right side (principal); K21.9 Gastro-esophageal reflux disease without esophagitis; F41.9 Anxiety disorder, unspecified; F17.200 Nicotine dependence, unspecified, uncomplicated; F12.90 Cannabis use, unspecified, uncomplicated; Z79.83 Long term (current) use of bisphosphonates; Z79.899 Other long term (current) drug therapy; Z91.048 Other nonmedicinal substance allergy status
CPT/HCPCS: 36415; 80053; 82150; 83690; 85025; 81003; 81025; 74177; 99284; 96374; J1885; Q9967

== ENCOUNTER 2022-08-13 20:44 | Emergency (ER) | payer OTHER ==
[2022-08-13 20:57] VITALS: TEMP 98.2
[2022-08-13] MEDS ORDERED: DIPH,PERTUS(ACELL)TETVAC-LF 0.5 ML VIAL IM ONE (20:59)
[2022-08-13] MEDS ORDERED: LIDOCAINE 1% INJ 10MG/ML (30 ML VIAL-PF) SQ ONE (20:59)
[2022-08-13] MEDS ORDERED: TOPICAL SKIN ADHESIVE 1 EACH AMP TOPICAL ONE (21:03)
[2022-08-13] MEDS ORDERED: IBUPROFEN 600 MG TAB PO STA (21:05)
--- NOTE | 2022-08-13 21:08 | ED ---
Wound/Laceration HPI - General Chief Complaint: Wound/Laceration Stated Complaint: IHS,Finger injury Time Seen by Provider: 08/13/22 20:59 Source: patient Mode of arrival: ambulatory Limitations: no limitations - History of Present Illness Initial Comments: Patient is a 36-year-old female who presents to the emergency department for laceration. Patient actually cut her left thumb on a knife at work. He initially had bleeding which stopped prior to arrival. She reports mild pain. No numbness or tingling. Tetanus is not up-to-date. - Related Data Home Medications Medication Instructions Recorded Confirmed Methylphenidate HCl [Ritalin] 10 mg PO DAILY 10/11/21 10/11/21 Omeprazole 20 mg PO DAILY PRN 10/11/21 10/11/21 Previous Rx's Medication Instructions Recorded Omeprazole 20 mg PO QAM 14 Days #20 cap 10/11/21 Ibuprofen [Motrin] 600 mg PO Q8HR PRN #30 tab 08/13/22 Allergies Allergy/AdvReac Type Severity Reaction Status Date / Time canola oil Allergy Unknown Verified 08/13/22 20:52 lavender (Lavandula Allergy Unknown Verified 08/13/22 20:52 angustifolia) Review of Systems ROS Statement: Those systems with pertinent positive or pertinent negative responses have been documented in the HPI. ROS Other: All systems not noted in ROS Statement are negative. Past Medical History Past Medical History: GERD/Reflux Additional Past Medical History / Comment(s): gestational diabetes-no meds,Hx of falcemia,cystic fibrosis carrier, hx of atrial septal defect closing after 1rst , History of Any Multi-Drug Resistant Organisms: MRSA Date of last positivie culture/infection: 2010 MDRO Source:: left arm Past Surgical History: Section, Cholecystectomy Past Anesthesia/Blood Transfusion Reactions: No Reported Reaction Additional Past Anesthesia/Blood Transfusion Reaction / Comment(s): no hx blood transfusion. Past Psychological History: ADD/ADHD, Anxiety Smoking Status: Former smoker Past Alcohol Use History: None Reported Past Drug Use History: Marijuana - Past Family History Mother Family Medical History: No Reported History General Exam Limitations: no limitations General appearance: alert, in no apparent distress Head exam: Present: atraumatic, normocephalic, normal inspection Neck exam: Present: normal inspection. Absent: tenderness, meningismus, lymphadenopathy Respiratory exam: Present: normal lung sounds bilaterally. Absent: respiratory distress, wheezes, rales, rhonchi, stridor Cardiovascular Exam: Present: regular rate, normal rhythm, normal heart sounds. Absent: systolic murmur, diastolic murmur, rubs, gallop, clicks Extremities exam: Present: other (0.5 cm laceration to left distal palmar thumb. lac is well approximated, non bleeding. Cap refill < 2 seconds. Sensation intact. Full ROM ) Neurological exam: Present: alert, oriented X3, CN II-XII intact Psychiatric exam: Present: normal affect, normal mood Skin exam: Present: warm, dry, intact, normal color. Absent: rash Course Vital Signs 08/13/22 08/13/22 20:52 21:48 Temperature 98.2 F Pulse Rate 80 76 Respiratory 16 18 Rate Blood Pressure 121/82 119/84 O2 Sat by Pulse 96 98 Oximetry Procedures - Laceration Laceration #1 Indication: laceration Site: other (left thumb) Description: linear Pre-repair: wound explored, irrigated extensively Patient Tolerated Procedure: well, no complications Additional Comments: exofin Medical Decision Making - Medical Decision Making Was pt. sent in by a medical professional or institution ([facility]z, [facility] [employer], urgent care, hospital, or retirement...) When possible be specific @ -[No] Did you speak to anyone other than the patient for history (EMS, parent, family, police, friend...)? What history was obtained from this source @ -[No] Did you review nursing and triage notes (agree or disagree)? Why? @ -[I reviewed and agree with nursing and triage notes] Were old charts reviewed (outside hosp., previous admission, EMS record, old EKG, old radiological studies, urgent care reports/EKG's, retirement records)? Report findings @ -[No old charts were reviewed] Differential Diagnosis (chest pain, altered mental status, abdominal pain women, abdominal pain men, vaginal bleeding, weakness, fever, dyspnea, syncope, headache, dizziness, GI bleed, back pain, seizure, CVA, palpatations, mental health)? @ -Laceration, abrasion, fracture. This list is not meant to be all-inclusive EKG interpreted by me (3pts min.). @ -[As above] X-rays interpreted by me (1pt min.). @ -[None done] CT interpreted by me (1pt min.). @ -[None done] U/S interpreted by me (1pt. min.). @ -[None done] What testing was considered but not performed or refused? (CT, X-rays, U/S, labs)? Why? @ -[None] What meds were considered but not given or refused? Why? @ -[None] Did you discuss the management of the patient with other professionals (professionals i.e. , PA, MESSENGER [employer], lab, RT, psych nurse, rn social services, battery recharger, teacher, correctional probation officer, case sealer)? Give summary @ -[No] Was smoking cessation discussed for >3mins.? @ -[No] Was critical care preformed (if so, how long)? @ -[No] Were there social determinants of health that impacted care today? How? (Homelessness, low income, unemployed, alcoholism, drug addiction, transportation, low edu. Level, literacy, decrease access to med. care, penitentiary, rehab)? @ -[No] Was there de-escalation of care discussed even if they declined (Discuss DNR or withdrawal of care, Hospice)? DNR status @ -[No] What co-morbidities impacted this encounter? (DM, HTN, Smoking, COPD, CAD, Cancer, CVA, ARF, Chemo, Hep., AIDS, mental health diagnosis, sleep apnea, morbid obesity)? @ -[None] Was patient admitted / discharged? Hospital course, mention meds given and route, prescriptions, significant lab abnormalities, going to OR and other pertinent info. @ -Patient presenting for small laceration to left thumb. Neurovascularly intact. Full range of motion. The laceration is already well approximated therefore it was sutures not indicated. Exofin was applied. Tetanus updated. Patient discharged with wound instructions. Undiagnosed new problem with uncertain prognosis? @ -[No] Drug Therapy requiring intensive monitoring for toxicity (Heparin, Nitro, Insulin, Cardizem)? @ -[No] Were any procedures done? @ -yes, laceration repair Diagnosis/symptom? @ -laceration Acute, or Chronic, or Acute on Chronic? @ -acute Uncomplicated (without systemic symptoms) or Complicated (systemic symptoms)? @ -uncomplicated Side effects of treatment? @ -[No] Exacerbation, Progression, or Severe Exacerbation? @ -[No] Poses a threat to life or bodily function? How? (Chest pain, [place], [place], pneumonia, PE, COPD, DKA, ARF, appy, cholecystitis, CVA, Diverticulitis, Homicidal, Suicidal, threat to staff... and all critical care pts) @ -[No] Dr. Diaz is my attending Disposition Clinical Impression: Laceration Disposition: HOME SELF-CARE Condition: Good Instructions (If sedation given, give patient instructions): Laceration (ED), Skin Adhesive Care (ED) Additional Instructions: Leave wound uncovered. Keep wound clean and dry. No harsh scrubbing or soaking until it heals. Wash with a mild soap. Take Tylenol or anti-inflammatories such as Motrin for pain. Follow-up with primary care provider in 1-2 days. Report back to the emergency department if you experience new, concerning, or worsening symptoms. Prescriptions: Ibuprofen [Motrin] 600 mg PO Q8HR PRN #30 tab PRN Reason: Pain Is patient prescribed a controlled substance at d/c from ED?: No Referrals: Connie Kuo MD [Primary Care Provider] - 1-2 days
[2022-08-13 21:51] VITALS: RESP 18
[2022-08-13 22:13] VITALS: BP 119/84; PULSE 76
== END 2022-08-13 21:51 | disposition home or self-care (01) ==
LOC: EC 20:44
DX: S61.012A Laceration without foreign body of left thumb without damage to nail, initial encounter (principal); K21.9 Gastro-esophageal reflux disease without esophagitis; F41.9 Anxiety disorder, unspecified; Z87.891 Personal history of nicotine dependence; F12.90 Cannabis use, unspecified, uncomplicated; Z91.048 Other nonmedicinal substance allergy status; Z79.899 Other long term (current) drug therapy; Z23 Encounter for immunization; W26.0XXA Contact with knife, initial encounter; Y99.0 Civilian activity done for income or pay
CPT/HCPCS: 12001; 90471; 90715; 99282

== ENCOUNTER 2022-12-16 06:28 | Emergency (ER) | payer OTHER ==
[2022-12-16 06:35] VITALS: RESP 18; TEMP 97.9
[2022-12-16] MEDS ORDERED: KETOROLAC 15 MG/ML 1 ML VIAL IM STA (07:07)
[2022-12-16] MEDS ORDERED: LIDOCAINE 2% GLYDO JELLY 11 ML APPL PO ONE (07:09)
--- NOTE | 2022-12-16 08:02 | ED ---
ENT HPI - General Chief complaint: ENT Stated complaint: Right Ear Injury Time Seen by Provider: 12/16/22 06:41 Source: patient, RN notes reviewed Mode of arrival: ambulatory Limitations: no limitations - History of Present Illness Initial comments: Patient is a 37-year-old female presenting to the emergency room with complaints of sudden itching of her right ear and then a pushing like sensation along with the development of pain prior to her arrival to the emergency room. She reports itching her ear with her finger and then attempting to use a Q-tip and this caused the pain to become worse. The pain is worse upon palpation of the tragus. She denies any drainage or discharge from her ear. She reports hearing is slightly muffled but denies any tinnitus. She denies any other complaints or concerns at this time. Past medical history as below reviewed. - Related Data Home Medications Medication Instructions Recorded Confirmed Methylphenidate HCl [Ritalin] 10 mg PO DAILY 10/11/21 10/11/21 Omeprazole 20 mg PO DAILY PRN 10/11/21 10/11/21 Previous Rx's Medication Instructions Recorded Omeprazole 20 mg PO QAM 14 Days #20 cap 10/11/21 Ibuprofen [Motrin] 600 mg PO Q8HR PRN #30 tab 08/13/22 Ciprofloxacin-Dexameth [Ciprodex 4 drops RIGHT EAR BID #7.5 ml 12/16/22 Otic Susp] Allergies Allergy/AdvReac Type Severity Reaction Status Date / Time canola oil Allergy Unknown Verified 12/16/22 06:34 lavender (Lavandula Allergy Unknown Verified 12/16/22 06:34 angustifolia) Review of Systems ROS Statement: Those systems with pertinent positive or pertinent negative responses have been documented in the HPI. ROS Other: All systems not noted in ROS Statement are negative. Past Medical History Past Medical History: GERD/Reflux Additional Past Medical History / Comment(s): gestational diabetes-no meds,Hx of falcemia,cystic fibrosis carrier, hx of atrial septal defect closing after 1rst , History of Any Multi-Drug Resistant Organisms: MRSA Date of last positivie culture/infection: 2010 MDRO Source:: left arm Past Surgical History: Section, Cholecystectomy Past Anesthesia/Blood Transfusion Reactions: No Reported Reaction Additional Past Anesthesia/Blood Transfusion Reaction / Comment(s): no hx blood transfusion. Past Psychological History: ADD/ADHD, Anxiety Smoking Status: Former smoker Past Alcohol Use History: None Reported Past Drug Use History: Marijuana - Past Family History Mother Family Medical History: No Reported History General Exam Limitations: no limitations General appearance: alert, in no apparent distress Head exam: Present: atraumatic, normocephalic, normal inspection Eye exam: Present: normal appearance, PERRL, EOMI. Absent: scleral icterus, conjunctival injection, periorbital swelling Expanded TM/Canal exam: Erythema: Right TM, Foreign Body: Right TM (insect), Canal Tenderness: Right TM Mouth exam: Present: normal external inspection Teeth exam: Present: normal inspection Throat exam: normal inspection Neck exam: Present: normal inspection, full ROM Respiratory exam: Absent: respiratory distress, accessory muscle use Cardiovascular Exam: Present: regular rate Extremities exam: Present: normal inspection. Absent: pedal edema, joint swelling Back exam: Present: normal inspection Neurological exam: Present: alert, oriented X3, CN II-XII intact Psychiatric exam: Present: normal affect, normal mood Skin exam: Present: warm, dry, intact, normal color. Absent: rash Course Vital Signs 12/16/22 06:33 Temperature 97.9 F Pulse Rate 83 Respiratory 18 Rate Blood Pressure 124/89 O2 Sat by Pulse 97 Oximetry Procedures - Foreign Body Removal Ear Location: ear canal (R) Foreign Body Suspected: insect If Insect Suspected: ear canal instilled with Lidocaine Foreign Body Removed: yes Foreign Body Removal Technique: instrumentation Tympanic Membrane Intact: Yes Patient Tolerated Procedure: well Complications: none Medical Decision Making - Medical Decision Making Was pt. sent in by a medical professional or institution (, PA, [employer]ING ROOM [employer], urgent care, hospital, or half-way...) When possible be specific @ -No Did you speak to anyone other than the patient for history (EMS, parent, family, police, friend...)? What history was obtained from this source @ -No Did you review nursing and triage notes (agree or disagree)? Why? @ -I reviewed and agree with nursing and triage notes Were old charts reviewed (outside hosp., previous admission, EMS record, old EKG, old radiological studies, urgent care reports/EKG's, half-way records)? Report findings @ -No old charts were reviewed Differential Diagnosis (chest pain, altered mental status, abdominal pain women, abdominal pain men, vaginal bleeding, weakness, fever, dyspnea, syncope, headache, dizziness, GI bleed, back pain, seizure, CVA, palpatations, mental health, musculoskeletal)? @ -not applicable EKG interpreted by me (3pts min.). @ -None done X-rays interpreted by me (1pt min.). @ -None done CT interpreted by me (1pt min.). @ -None done U/S interpreted by me (1pt. min.). @ -None done What testing was considered but not performed or refused? (CT, X-rays, U/S, labs)? Why? @ -None What meds were considered but not given or refused? Why? @ -None Did you discuss the management of the patient with other professionals (professionals i.e. , PA, [employer]OM [employer], lab, RT, psych nurse, social sciences department chair, network engineer, teacher, hospital chief financial officer, major case detective)? Give summary @ -No Was smoking cessation discussed for >3mins.? @ -No Was critical care preformed (if so, how long)? @ -No Were there social determinants of health that impacted care today? How? (Homelessness, low income, unemployed, alcoholism, drug addiction, transportation, low edu. Level, literacy, decrease access to med. care, long term, rehab)? @ -No Was there de-escalation of care discussed even if they declined (Discuss DNR or withdrawal of care, Hospice)? DNR status @ -No What co-morbidities impacted this encounter? (DM, HTN, Smoking, COPD, CAD, Cancer, CVA, ARF, Chemo, Hep., AIDS, mental health diagnosis, sleep apnea, morbid obesity)? @ -None Was patient admitted / discharged? Hospital course, mention meds given and route, prescriptions, significant lab abnormalities, going to OR and other pertinent info. @ -37-year-old female presenting to the emergency room with complaints of pain, wishing sensation and itching sensation to her right knee and all of a sudden during the night prior to her arrival to the emergency room. Exam revealed insect to the right TM. No indication for any laboratory studies or diagnostic imaging. Patient with significant amount of pain will give IM Toradol and inject Viscous Lidocaine into the ear canal. Fully intact insect removed with alligator forceps after lidocaine injection and irrigation. No indication for any further medications, diagnostic imaging or laboratory studies. Advise use of [id number] ibuprofen as needed for pain. Will place on a short course of Ciprodex no indication for oral antibiotic therapy. Questions concerns answered. Return parameters to the emergency room discussed. Will discharge home in stable condition on optic antibiotic to treat right ear c anal status post foreign body removal encouraging follow-up with primary care provider. Undiagnosed new problem with uncertain prognosis? @ -No Drug Therapy requiring intensive monitoring for toxicity (Heparin, Nitro, Insulin, Cardizem)? @ -No Were any procedures done? @ -Yes foreign body removal right ear canal see procedures for details. Diagnosis/symptom? @ -Foreign object (insect) right ear Acute, or Chronic, or Acute on Chronic? @ -Acute Uncomplicated (without systemic symptoms) or Complicated (systemic symptoms)? @ -Uncomplicated Side effects of treatment? @ -No Exacerbation, Progression, or Severe Exacerbation? @ -No Poses a threat to life or bodily function? How? (Chest pain, [place], [place], pneumonia, PE, COPD, DKA, ARF, appy, cholecystitis, CVA, Diverticulitis, Homicidal, Suicidal, threat to staff... and all critical care pts) @ -No Case discussed with Dr. Mercer. Disposition Clinical Impression: Acute foreign body of ear canal Disposition: HOME SELF-CARE Condition: Stable Instructions (If sedation given, give patient instructions): Ear Foreign Body (ED), Earache (ED) Additional Instructions: Utilize ear drops which contain a steroid and antibiotic for 7 days. Utilize [id number] ibuprofen or Tylenol as needed for pain. Please follow-up with your primary care provider. Please return to the Emergency Department if symptoms worsen or any other concerns. Prescriptions: Ciprofloxacin-Dexameth [Ciprodex Otic Susp] 4 drops RIGHT EAR BID #7.5 ml Is patient prescribed a controlled substance at d/c from ED?: No Referrals: Connie Kuo MD [Primary Care Provider] - 1-2 days Time of Disposition: 08:01
[2022-12-16 08:41] VITALS: BP 125/89; PULSE 78
== END 2022-12-16 08:40 | disposition home or self-care (01) ==
LOC: EC 06:28
DX: T16.1XXA Foreign body in right ear, initial encounter (principal); K21.9 Gastro-esophageal reflux disease without esophagitis; F41.9 Anxiety disorder, unspecified; F12.90 Cannabis use, unspecified, uncomplicated; Z79.899 Other long term (current) drug therapy; Z88.8 Allergy status to other drugs, medicaments and biological substances; Z91.09 Other allergy status, other than to drugs and biological substances; Z87.891 Personal history of nicotine dependence; Z90.49 Acquired absence of other specified parts of digestive tract
CPT/HCPCS: 99283; 96372; 69200; J1885